=== PATIENT | male | born 1960 | race Caucasian/White ===

== ENCOUNTER → 2019-08-14 10:00 | Outpatient (BNVA) | payer MEDICARE, SELFPAY | PROVIDERS: Family Provider Family Medicine; PCP Family Medicine; Visit Provider Family Medicine | DX: E78.5 Hyperlipidemia, unspecified (principal); E11.9 Type 2 diabetes mellitus without complications; I10 Essential (primary) hypertension; M94.0 Chondrocostal junction syndrome [Tietze]; K21.9 Gastro-esophageal reflux disease without esophagitis; R07.81 Pleurodynia; D64.9 Anemia, unspecified | CPT/HCPCS: 80053; 80061; 83036; 85025 ==

== ENCOUNTER → 2019-09-26 12:30 | Outpatient (BNVA) | payer MEDICARE, SELFPAY | PROVIDERS: Family Provider Family Medicine; PCP Family Medicine; Visit Provider Nurse Practitioner | DX: F31.78 Bipolar disorder, in full remission, most recent episode mixed (principal) | CPT/HCPCS: 99213 ==

== ENCOUNTER → 2020-01-30 07:41 | Outpatient (BNVA) | payer MEDICARE, SELFPAY | PROVIDERS: Family Provider Family Medicine; PCP Family Medicine; Visit Provider Nurse Practitioner | DX: F31.78 Bipolar disorder, in full remission, most recent episode mixed (principal) | CPT/HCPCS: 99213 ==

== ENCOUNTER → 2020-03-11 08:00 | Outpatient (BNVA) | payer MEDICARE, SELFPAY | PROVIDERS: Family Provider Family Medicine; PCP Family Medicine; Visit Provider Family Medicine | DX: E11.9 Type 2 diabetes mellitus without complications (principal); E78.2 Mixed hyperlipidemia; Z79.4 Long term (current) use of insulin | CPT/HCPCS: 80053; 80061; 83036; 85025 ==

== ENCOUNTER → 2020-06-04 08:27 | Outpatient (BNVA) | payer MEDICARE, SELFPAY | PROVIDERS: Family Provider Family Medicine; PCP Family Medicine; Visit Provider Nurse Practitioner | DX: F31.78 Bipolar disorder, in full remission, most recent episode mixed (principal) | CPT/HCPCS: 99213 ==

== ENCOUNTER → 2020-09-16 12:18 | Outpatient (BNVA) | payer MEDICARE, SELFPAY | PROVIDERS: Family Provider Family Medicine; PCP Family Medicine; Visit Provider Family Medicine | DX: I10 Essential (primary) hypertension (principal); E11.9 Type 2 diabetes mellitus without complications; K21.9 Gastro-esophageal reflux disease without esophagitis; E78.2 Mixed hyperlipidemia; Z79.4 Long term (current) use of insulin | CPT/HCPCS: 80053; 80061; 83036; 84443; 85025 ==

== ENCOUNTER → 2020-10-15 08:15 | Outpatient (BNVA) | payer MEDICARE, SELFPAY | PROVIDERS: Family Provider Family Medicine; PCP Family Medicine; Visit Provider Nurse Practitioner | DX: F31.78 Bipolar disorder, in full remission, most recent episode mixed (principal) | CPT/HCPCS: 99214 ==

== ENCOUNTER → 2021-04-05 00:01 | Outpatient (BNVA) | payer MEDICARE, SELFPAY | PROVIDERS: Family Provider Family Medicine; PCP Family Medicine; Visit Provider Family Medicine | DX: I10 Essential (primary) hypertension (principal); E11.9 Type 2 diabetes mellitus without complications; E78.2 Mixed hyperlipidemia; K21.9 Gastro-esophageal reflux disease without esophagitis; Z79.4 Long term (current) use of insulin; M94.0 Chondrocostal junction syndrome [Tietze]; E78.5 Hyperlipidemia, unspecified | CPT/HCPCS: 80053; 80061; 83036; 84443; 85025 ==

== ENCOUNTER → 2021-09-13 12:19 | Outpatient (BNVA) | payer BC, SELFPAY | PROVIDERS: Family Provider Family Medicine; PCP Family Medicine; Visit Provider Family Medicine | DX: J32.9 Chronic sinusitis, unspecified (principal); E11.9 Type 2 diabetes mellitus without complications; E78.2 Mixed hyperlipidemia; I10 Essential (primary) hypertension; K21.9 Gastro-esophageal reflux disease without esophagitis; Z79.4 Long term (current) use of insulin; L40.8 Other psoriasis | CPT/HCPCS: 80053; 80061; 83036; 84443; 85025 ==

== ENCOUNTER → 2022-03-14 08:57 | Outpatient (BNVA) | payer BC, SELFPAY | PROVIDERS: Family Provider Family Medicine; PCP Family Medicine; Visit Provider Family Medicine | DX: I10 Essential (primary) hypertension (principal); E78.5 Hyperlipidemia, unspecified; E11.9 Type 2 diabetes mellitus without complications; Z12.5 Encounter for screening for malignant neoplasm of prostate; M94.0 Chondrocostal junction syndrome [Tietze]; K21.9 Gastro-esophageal reflux disease without esophagitis; Z79.4 Long term (current) use of insulin; E78.2 Mixed hyperlipidemia; F32.9 Major depressive disorder, single episode, unspecified | CPT/HCPCS: 80053; 80061; 83036; 84443; 85025; G0103 ==

== ENCOUNTER → 2022-08-12 10:18 | Outpatient (BNVA) | payer MEDICARE, SELFPAY | PROVIDERS: Family Provider Family Medicine; PCP Family Medicine; Visit Provider Family Medicine | DX: E11.9 Type 2 diabetes mellitus without complications (principal); Z79.4 Long term (current) use of insulin; I10 Essential (primary) hypertension; G47.30 Sleep apnea, unspecified | CPT/HCPCS: 80053; 80061; 82607; 83036 ==

== ENCOUNTER → 2023-01-12 11:05 | Outpatient (BNVA) | payer MEDICARE, SELFPAY | PROVIDERS: Family Provider Family Medicine; PCP Family Medicine; Visit Provider Family Medicine | DX: E11.9 Type 2 diabetes mellitus without complications (principal); E78.5 Hyperlipidemia, unspecified; I10 Essential (primary) hypertension; Z79.4 Long term (current) use of insulin; Z13.6 Encounter for screening for cardiovascular disorders; E78.2 Mixed hyperlipidemia | CPT/HCPCS: 80053; 80061; 82607; 83036 ==

== ENCOUNTER → 2023-07-10 10:58 | Outpatient (BNVA) | payer MEDICARE, SELFPAY | PROVIDERS: Family Provider Family Medicine; PCP Family Medicine; Visit Provider Family Medicine | DX: Z79.4 Long term (current) use of insulin (principal); E11.9 Type 2 diabetes mellitus without complications; I10 Essential (primary) hypertension; I50.9 Heart failure, unspecified; E78.5 Hyperlipidemia, unspecified; Z13.6 Encounter for screening for cardiovascular disorders; E78.2 Mixed hyperlipidemia | CPT/HCPCS: 80053; 80061; 82607; 83036; 83721 ==

== ENCOUNTER → 2023-12-29 08:59 | Outpatient (BNVA) | payer MEDICARE, SELFPAY | PROVIDERS: Family Provider Family Medicine; PCP Family Medicine; Visit Provider Family Medicine | DX: I10 Essential (primary) hypertension (principal); I50.9 Heart failure, unspecified; I25.9 Chronic ischemic heart disease, unspecified; E78.2 Mixed hyperlipidemia; E11.9 Type 2 diabetes mellitus without complications; Z79.4 Long term (current) use of insulin; Z13.6 Encounter for screening for cardiovascular disorders | CPT/HCPCS: 80053; 80061; 82607; 83036; 85025 ==

== ENCOUNTER 2024-10-07 15:31 | Inpatient (IN) | payer MEDICARE, SELFPAY ==
[2024-10-07] VITALS (10 sets, daily range): BP systolic 173–226; BP diastolic 96–151; PULSE 67–106; RESP 12–21; TEMP 36.4–36.9; O2SAT 93–98
--- NOTE | 2024-10-07 15:37 | CTR_ITS ---
PROCEDURE INFORMATION: Exam: CT Head Without Contrast Exam date and time: 10/07/2024 3:49 PM Age: 63 years old Clinical indication: Stroke-like symptoms; Speech disturbance; Right facial droop; Mohit lower extremity weakness; Additional info: Symptoms of acute stroke TECHNIQUE: Imaging protocol: Computed tomography of the head without contrast. Radiation optimization: All CT scans at this facility use at least one of these dose optimization techniques: automated exposure control; mA and/or kV adjustment per patient size (includes targeted exams where dose is matched to clinical indication); or iterative reconstruction. Other technique: STROKE PROTOCOL was implemented. COMPARISON: No relevant prior studies available. RADIATION DOSE METRICS: Total DLP (mGy-cm): 1094.6 FINDINGS: Brain: Age-indeterminate subcortical/deep white matter hypodensities within the superior left frontal lobe (series 3, image 31). No intracranial hemorrhage. There is global parenchymal volume loss. Periventricular white matter hypoattenuation is nonspecific but most likely due to small vessel disease. No mass effect or midline shift. Cerebral ventricles: Prominent ventricles likely secondary to volume loss. Paranasal sinuses: Visualized paranasal sinuses are clear. Mastoid air cells: The mastoid air cells are clear. Bones: Benign hyperostosis frontalis is present. Soft tissues: Soft tissues are unremarkable as visualized. CT/CT head thrombolytic [id number] IMPRESSION: Age-indeterminate subcortical/deep white matter hypodensities within the superior left frontal lobe, which may represent subacute to chronic deep white matter infarcts. Brain MRI may be considered if there is suspicion for acute ischemia. ASSESSMENT: ASPECTS ([place] Stroke Program Early CT Score) is 10.
--- NOTE | 2024-10-07 15:37 | ECG_ITS ---
[facility]: 2024-[facility]07 Pat Name: Mook Ruff Department: Room: Gender: Male [employer]: : 1960 Requested By: Blayne Yeung Order Number: [id number] Reading MD: LISA PETTIT Measurements Intervals [place] Rate: 99 P: 44 RI: 138 QRS: 55 QRSD: 88 T: 88 QT: 337 QTc: 434 Interpretive Statements SINUS RHYTHM LEFT ATRIAL ENLARGEMENT [-0.15mV P-WAVE IN V1/V2] NONSPECIFIC ST & T-WAVE ABNORMALITY No previous ECG available for comparison Electronically Signed On 10-07-2024 18:06:42 CDT by LISA PETTIT [email or web address]
--- NOTE | 2024-10-07 15:38 | W.ED.NEUROSD ---
HPI - Neuro Symptoms/Deficit General: Chief Complaint: Neuro Symptoms/Deficit Stated Complaint: stroke like symptoms Time Seen by Provider: 10/07/24 15:35 Source: patient Mode of arrival: ambulatory Limitations: no limitations History of Present Illness: 63-year-old male who states has been having slurred speech aphasia along with some right sided numbness he states it started 1 week ago. He denies any headache. He is quite aphasic here. No known history of stroke in the past Associated symptoms: Deny chest pain, headache(s), nausea or vomiting Related Data Home Medications ?Medication ?Instructions ?Recorded ?Confirmed aspirin 81 mg tablet,delayed 81 mg PO QDAY 08/14/19 10/07/24 release (Adult Low Dose Aspirin) amlodipine 10 mg tablet 10 mg PO DAILY 10/07/24 10/07/24 atorvastatin 80 mg tablet 80 mg PO DAILY 10/07/24 10/07/24 clonidine HCl 0.2 mg tablet 0.2 mg PO BID 10/07/24 10/07/24 glipizide 10 mg tablet, extended 10 mg PO BID 10/07/24 10/07/24 release 24 hr hydrochlorothiazide 12.5 mg capsule 12.5 mg PO QAM 10/07/24 10/07/24 irbesartan 300 mg tablet 300 mg PO DAILY 10/07/24 10/07/24 metformin 500 mg tablet 1,000 mg PO BID 10/07/24 10/07/24 metoprolol succinate 100 mg 100 mg PO BID 10/07/24 10/07/24 tablet,extended release 24 hr omeprazole 20 mg capsule,delayed 20 mg PO BID 10/07/24 10/07/24 release triamterene 75 1 tab PO DAILY 10/07/24 10/07/24 mg-hydrochlorothiazide 50 mg tablet Previous Rx's ?Medication ?Instructions ?Recorded insulin glargine 100 unit/mL (3 30 unit (0.3 mL) SUBCUT DAILY 30 01/11/23 mL) subcutaneous pen (Lantus days #45 mL Solostar U-100 Insulin) Allergies Allergy/AdvReac Type Severity Reaction Status Date / Time lisinopril Allergy cough Verified 10/07/24 15:46 Review of Systems Const: Denies: fever(s), chills, body aches or change in appetite Eyes: Denies: blurry vision or eye discomfort ENMT: Denies: throat pain or dental pain Card: Denies: chest pain Resp: Denies: dyspnea GI: Denies: abdominal pain, nausea, vomiting or diarrhea Musc: Denies: neck pain or back pain Skin/Breast: Denies: rash Neuro: Reports: numbness in extremities and Slurred speech present; Denies: headache(s) PFSH ED PFSH: Medical History (Updated 10/07/24 @ 16:34 by Aleyda Paula MD) Attention-deficit hyperactivity disorder, predominantly inattentive type Alcohol dependence, in remission Bipolar disorder, in full remission, most recent episode mixed ADHD Raynauds disease Neuropathy Psoriatic arthritis DDD (degenerative disc disease) Sleep apnea GERD (gastroesophageal reflux disease) Hypertension Hyperlipidemia Diabetes Bipolar 1 disorder Schizophrenia Depression Surgical History H/O total knee replacement Family History Other Hypertension Denies family history of Diabetes Chronic kidney disease (CKD) Lung disease Cancer Stroke Social History Smoking and tobacco/nicotine status: never used tobacco/nicotine Alcohol intake: never Substance/Drug Use: never Adopted: No Lives independently: Yes Housing: Manufactured/Mobile home Marital status: Single Number of children: 0 Highest education level completed: 11th Grade service: No Current occupational status: retired Current gender identity: Male NIH stroke score NIHSS: Level Of Consciousness - 1a: 0 Level Of Consciousness Questions - 1b: Both Correct Level Of Consciousness Commands - 1c: Both Correct Best Gaze - 2: Normal Visual Bust[place] - 3: No Visual Loss Facial Palsy - 4: Normal Motor Arm Right - 5: No Drift Motor Arm Left - 5: No Drift Motor Leg Right - 6: Drift Motor Leg Left - 6: No Drift Limb Ataxia - 7: Absent Sensory - 8: Mild To Moderate Loss Best Language - 9: Mild/Moderate Aphasia Dysarthia - 10: Mild/Moderate Dysarthia Extinction And Inattention - 11: 0 Score: Total Score: 4 Physical Exam Const: COMMON NORMALS: patient oriented x3 HENMT: COMMON NORMALS: normocephalic and atraumatic HEAD & SCALP: normocephalic and atraumatic Eye: COMMON NORMALS: Equal, round and reactive pupils present and EOMs intact bilaterally PUPIL: Yes Equal, round and reactive pupils present Neck/C-Spine: COMMON NORMALS: full ROM and supple Chest: COMMONS NORMALS: normal inspection of the chest Resp: COMMON NORMALS: normal respiratory effort, No retractions, No use of accessory muscles and clear to auscultation bilaterally AUSCULTATION: clear to auscultation bilaterally Cardio: COMMON NORMALS: regular rate, regular rhythm and No murmurs present (Cardio) RATE: regular rate RHYTHM: regular rhythm Extremity: COMMON NORMALS: normal to inspection and full ROM Neuro: COMMON NORMALS: patient oriented x3 SPEECH: abnormal speech Psych: COMMON NORMALS: mental status grossly normal, Normal thought process present and cooperative THOUGHT PROCESS: Normal thought process present Skin: COMMON NORMALS: no rashes or lesions noted and no wounds GENERAL SKIN EXAM: no rashes or lesions noted Course Vital Signs: Vital signs: Vital Signs Temperature 97.6 F 10/07/24 15:44 Pulse Rate 106 H 10/07/24 15:44 Blood Pressure 223/128 10/07/24 15:44 Pulse Oximetry 98 10/07/24 15:44 Oxygen Delivery Me thod Room Air 10/07/24 15:44 MDM - Neuro Symptoms/Deficit Medical Decision Making Patient presents here with strokelike symptoms he is out of any treatment window since last known normal was 1 week ago will admit at this time. Medical Records I reviewed the patient's medical records. Lab Data I reviewed the patient's lab results. 10/07/24 15:44 10/07/24 15:[address] 10/07/24 15:37 IMPRESSION: Age-indeterminate subcortical/deep white matter hypodensities within the superior left frontal lobe, which may represent subacute to chronic deep white matter infarcts. Brain MRI may be considered if there is suspicion for acute ischemia. ASSESSMENT: ASPECTS ([place] Stroke Program Early CT Score) is 10. ADDENDUM: 10/07/24 1610 COMMENT: THIS REPORT CONTAINS FINDINGS THAT MAY BE CRITICAL TO PATIENT CARE. The exam findings were verbally communicated by me to ALEYDA PAULA via telephone conference at 4:08 PM CDT on 10/07/2024. The findings were acknowledged and understood. Laboratory Results WBC 8.07 10^3/uL (3.29-11.43) 10/07/24 15:44 RBC 5.36 10^6/uL (3.85-5.65) 10/07/24 15:44 Hgb 17.30 g/dL (11.27-16.99) H 10/07/24 15:44 Hct 47.9 % (37-53) 10/07/24 15:44 MCV 89.4 fl (82-101) 10/07/24 15:44 MCH 32.3 pg (27-33) 10/07/24 15:44 MCHC 36.1 g/dL (30-55) 10/07/24 15:44 RDW 11.7 % (12.1-15.1) L 10/07/24 15:44 Plt Count 333 10^3/cmm (157-399) 10/07/24 15:44 MPV 10.0 fL (7.4-10.4) 10/07/24 15:44 Neut % (Auto) 71.9 % 10/07/24 15:44 Lymph % (Auto) 19.1 % 10/07/24 15:44 Sanders % (Auto) 7.1 % 10/07/24 15:44 Eos % (Auto) 0.9 % 10/07/24 15:44 Baso % (Auto) 0.5 % 10/07/24 15:44 Neut # (Auto) 5.81 10^3/uL (1.8-7.7) 10/07/24 15:44 Lymph # (Auto) 1.5 10^3/uL (0.8-4.8) 10/07/24 15:44 Sanders # (Auto) 0.6 10^3/uL (0.2-0.9) 10/07/24 15:44 Eos # (Auto) 0.1 10^3/uL (0.0-0.8) 10/07/24 15:44 Baso # (Auto) 0.0 10^3/uL (0.0-0.1) 10/07/24 15:44 Nucleated RBC % (auto) 0 % 10/07/24:44 Nucleated RBCs # 0.0 /100WBC 10/07/24 15:44 PT 11.50 SECONDS (12.1-14.9) L 10/07/24 15:44 INR 0.78 (0.8-1.2) L 10/07/24 15:44 APTT 24.2 SECONDS (23.9-36.7) 10/07/24 15:44 Sodium 132 mmol/L (136-145) L 10/07/24 15:44 Potassium 3.0 mmol/L (3.5-5.1) L 10/07/24 15:44 Chloride 88 mmol/L (98-107) L 10/07/24 15:44 Carbon Dioxide 27 mmol/L (22-29) 10/07/24 15:44 Anion Gap 20.0 (5-19) H 10/07/24 15:44 BUN 5 mg/dL (8-23) L 10/07/24 15:44 Creatinine 0.8 mg/dL (0.7-1.2) 10/07/24 15:44 GFR Calculation 97.6 mL/min (90-130) 10/07/24 15:44 Glucose 589 mg/dL (65-115) H* 10/07/24 15:44 POC Glucose 555 mg/dL (70-110) H* 10/07/24 15:37 Calculated Osmolality 299 mOsm/kg (285-295) H 10/07/24 15:44 Calcium 9.0 mg/dL (8.5-10.5) 10/07/24 15:44 Total Bilirubin 0.6 mg/dL (0.15-1.2) 10/07/24 15:44 AST 15 U/L (0-40) 10/07/24 15:44 ALT 13 U/L (0-41) 10/07/24 15:44 Alkaline Phosphatase 94 U/L (40-130) 10/07/24 15:44 Total Protein 7.1 g/dL (6.6-8.7) 10/07/24 15:44 Albumin 3.8 g/dL (3.5-5.2) 10/07/24 15:44 Globulin 3.3 g/dL (1.3-4.6) 10/07/24 15:44 Amorphous Sediment Not Reportable 10/07/24 16:08 All radiology interpretation(s) finalized by discharge Discharge Plan Discharge Patient Disposition: Admitted As Inpatient Clinical Impression: Cerebrovascular accident Condition: Stable Prescriptions: No Action aspirin [Adult Low Dose Aspirin] 81 mg tablet,delayed release (DR/EC) 81 mg PO QDAY Lantus Solostar U-100 Insulin 100 unit/mL (3 mL) insulin pen 30 unit SUBCUT DAILY 30 Days Qty: 45 3RF metformin 500 mg tablet 1,000 mg PO BID Rx Instructions: TAKE TWO TABLETS BY MOUTH TWICE DAILY atorvastatin 80 mg tablet 80 mg PO DAILY Rx Instructions: TAKE ONE TABLET BY MOUTH DAILY glipizide 10 mg tablet extended release 24hr 10 mg PO BID Rx Instructions: TAKE ONE TABLET BY MOUTH TWICE DAILY metoprolol succinate 100 mg tablet extended release 24 hr 100 mg PO BID Rx Instructions: TAKE ONE TABLET BY MOUTH TWICE DAILY clonidine HCl 0.2 mg tablet 0.2 mg PO BID Rx Instructions: TAKE ONE TABLET BY MOUTH TWICE DAILY amlodipine 10 mg tablet 10 mg PO DAILY Rx Instructions: TAKE ONE TABLET BY MOUTH EVERY DAY hydrochlorothiazide 12.5 mg capsule 12.5 mg PO QAM Rx Instructions: TAKE ONE CAPSULE BY MOUTH EVERY MORNING omeprazole 20 mg capsule,delayed release(DR/EC) 20 mg PO BID Rx Instructions: TAKE ONE CAPSULE BY MOUTH TWICE DAILY irbesartan 300 mg tablet 300 mg PO DAILY Rx Instructions: TAKE ONE TABLET BY MOUTH EVERY DAY triamterene-hydrochlorothiazid 75-50 mg tablet 1 tab PO DAILY Referrals: Azam Mendoza DO [Primary Care Provider] - Print Language: Spanish Coding Level of Care Code ED Line Prep Cook for Jay Jay Arteaga
[2024-10-07 15:40] LABS: Glucose Point of Care 555 mg/dL (70-110)
[2024-10-07 15:56] LABS: Basophils % 0.5 %; Eosinophils # 0.1 10^3/uL (0.0-0.8); Eosinophils % 0.9 %; Hematocrit 47.9 % (37-53); Lymphocytes # 1.5 10^3/uL (0.8-4.8); Lymphocytes % 19.1 %; Mean Corpuscular HGB Conc 36.1 g/dL (30-55); Mean Corpuscular Hemoglobin 32.3 pg (27-33); Mean Corpuscular Volume 89.4 fl (82-101); Monocytes # 0.6 10^3/uL (0.2-0.9); Monocytes % 7.1 %; Neutrophils # 5.81 10^3/uL (1.8-7.7); Neutrophils % 71.9 %; Nucleated Red Blood Cells % 0 %; Platelet Count 333 10^3/cmm (157-399); Red Blood Count 5.36 10^6/uL (3.85-5.65); Red Cell Distribution Width 11.7 % (12.1-15.1); White Blood Count 8.07 10^3/uL (3.29-11.43)
[2024-10-07] MEDS: insulin regular-human 100 units/1 mL 14 UNIT IVP (16:02)
--- NOTE | 2024-10-07 16:03 | XRR_ITS ---
PROCEDURE INFORMATION: Exam: XR Chest Exam date and time: 10/07/2024 4:15 PM Age: 63 years old Clinical indication: Other: Weakness, slurred speech, RT sided facial droop; Additional info: CVA TECHNIQUE: Imaging protocol: Radiologic exam of the chest. Views: 1 view. COMPARISON: No relevant prior studies available. FINDINGS: Lungs: Unremarkable. No consolidation. Pleural spaces: Unremarkable. No pleural effusion. No pneumothorax. Heart/Mediastinum: Unremarkable. No cardiomegaly. Bones/joints: Unremarkable. XR/XR chest 1V portable [id number] IMPRESSION: No acute findings.
[2024-10-07 16:06] LABS: INR 0.78 (0.8-1.2)
[2024-10-07 16:07] LABS: Partial Thromboplastin Time 24.2 SECONDS (23.9-36.7)
[2024-10-07] MEDS: aspirin 81 mg Chew Tablet 324 MG PO (16:13)
[2024-10-07 16:15] LABS: Alanine Aminotransferase 13 U/L (0-41); Albumin Level 3.8 g/dL (3.5-5.2); Alkaline Phosphatase 94 U/L (40-130); Aspartate Amino Transferase 15 U/L (0-40); Blood Urea Nitrogen 5 mg/dL (8-23); Carbon Dioxide 27 mmol/L (22-29); Chloride 88 mmol/L (98-107); Globulin 3.3 g/dL (1.3-4.6); Glomerular Filtration Rate 97.6 mL/min (90-130); Osmolality Calculated 299 mOsm/kg (285-295); Sodium 132 mmol/L (136-145); Total Bilirubin 0.6 mg/dL (0.15-1.2); Total Protein 7.1 g/dL (6.6-8.7)
[2024-10-07 16:17] LABS: Glucose 589 mg/dL (65-115)
[2024-10-07 16:32] LABS: Bilirubin Urine Negative (Negative); Blood Urine 1+ (Negative); Glucose Urine UA 3+ (Normal); Ketones Urine Negative (Negative); Leukocyte Esterase Urine Negative (Negative); Nitrate Urine Negative (Negative); Protein Urine 3+ (Negative); Urine Appearance Clear (CLEAR); Urine Color Yellow (Yellow); Urobilinogen Urine 0.2 mg/dL (Negative); pH Urine 5.5 (5-7)
[2024-10-07 16:37] LABS: Add Urine Microscopic? YES; Bacteria Urine None Seen /hpf; Hyaline Casts Urine 1.21 /lpf; Squamous Epithelial Cell Urine 0-5 /hpf (0-5)
[2024-10-07 16:42] LABS: Specific Gravity, Urine 1.033 (1.005-1.030)
[2024-10-07 16:42] LABS: Ketone (Acetest) Serum Negative (Negative)
[2024-10-07 16:43] LABS: Add Urine Culture? No
[2024-10-07 16:49] LABS: Glucose Point of Care 464 mg/dL (70-110)
[2024-10-07 16:51] LABS: Amphetamines Screen Urine Negative (Negative); Barbiturates Screen Urine Negative (Negative); Benzodiazepines Screen Urine Negative (Negative); Cocaine Screen Urine Negative (Negative); Opiate Screen Urine Negative (Negative); PCP Screen Urine Negative (Negative); THC Screen Urine Negative (Negative)
[2024-10-07 17:22] LABS: ABG PCO2 32.8 mmHg (35-45); ABG PH Result 7.44 (7.35-7.45); Alveolar-Arterial Oxygen Gradi 1.9 mmHg (5-10); Arterial Blood Gas Hematocrit 52.1 % (42-52); Base Excess ABG -1.1 mmol/L (-2.0-2.0); Blood Gas Operator Identificat GD; Blood Gas Sample Site Brachial, right; Blood Gas Sample Type Arterial; Carboxyhemoglobin 0.9 %THgb (0.4-20.1); HCO3 ABG 22.1 mmol/L (22-26); HGB O2 Sat 96.5 % (95-100); Ionized Calcium Level - ABG 1.2 mmol/L (1.1-1.4); Oxygen Device ROOM AIR; Oxygen Saturation ABG 98.4; PO2 ABG 93.2 mmHg (80.0-100.0); PO2 FiO2 Ratio Arterial Blood 443; Potassium Level - ABG 2.9 mmol/L (3.5-5.0)
--- NOTE | 2024-10-07 17:24 | CTR_ITS ---
PROCEDURE INFORMATION: Exam: CTA Head With Contrast, Arteriography Exam date and time: 10/07/2024 5:32 PM Age: 63 years old Clinical indication: Speech disturbance and weakness; Slurred speech; Additional info: Stroke, CT angiogram cervical and intracranial vessels TECHNIQUE: Imaging protocol: Computed tomographic angiography of the head with contrast. Exam focused on the arteries. 3D rendering (Not supervised by radiologist): MIP and/or 3D reconstructed images were created by the technologist. Radiation optimization: All CT scans at this facility use at least one of these dose optimization techniques: automated exposure control; mA and/or kV adjustment per patient size (includes targeted exams where dose is matched to clinical indication); or iterative reconstruction. Contrast material: OMNI 350; Contrast volume: 100 ml; Contrast route: INTRAVENOUS (IV); COMPARISON: CT head thrombolytic [id number] 10/07/2024 3:49 PM RADIATION DOSE METRICS: Total DLP (mGy-cm): 463.71 FINDINGS: ANTERIOR CIRCULATION: Right internal carotid artery: The intracranial right internal carotid artery demonstrates mild atherosclerotic calcification of the carotid siphon without significant stenosis. No aneurysm. Right middle cerebral artery: Right middle cerebral artery is patent. No significant stenosis. No aneurysm. Right anterior cerebral artery: Right anterior cerebral artery is patent. No significant stenosis. No aneurysm. Left internal carotid artery: The intracranial left internal carotid artery demonstrates mild atherosclerotic calcification of the carotid siphon without significant stenosis. No aneurysm. Left middle cerebral artery: Left middle cerebral artery is patent. No significant stenosis. No aneurysm. Left anterior cerebral artery: Left anterior cerebral artery is patent. No significant stenosis. No aneurysm. POSTERIOR CIRCULATION: Right vertebral artery: There is mild irregular atherosclerotic narrowing of the right vertebral artery, without significant stenosis. No aneurysm. Left vertebral artery: The left vertebral artery is dominant. Left vertebral artery is patent. No significant stenosis. No aneurysm. Basilar artery: The basilar artery is patent. No significant stenosis. No aneurysm. Right posterior cerebral artery: Right posterior cerebral artery is patent. No significant stenosis. No aneurysm. Left posterior cerebral artery: Left posterior cerebral artery is patent. No significant stenosis. No aneurysm. Brain: Please see seperately ordered CT of the head for full report. Cerebral ventricles: Please see seperately ordered CT of the head for full report. Bones/joints: Nonspecific 4 x 5 x 4 mm calcified, enhancing structure arising from the posterior clivus. There is adjacent remodeling and lucency/erosion of the posterior clivus (see for example series 7, image 68, series 6, images 100 3-105, and series 4, images 230-223). Soft tissues: Unremarkable. PROCEDURE INFORMATION: Exam: CTA Neck With Contrast Exam date and time: 10/07/2024 5:32 PM Age: 63 years old Clinical indication: Speech disturbance and weakness; Slurred speech; Additional info: Stroke, CT angiogram cervical and intracranial vessels TECHNIQUE: Imaging protocol: Computed tomographic angiography of the neck with contrast. Exam focused on the cervical segments of the vasculature. 3D rendering (Not supervised by radiologist): MIP and/or 3D reconstructed images were created by the technologist. Radiation optimization: All CT scans at this facility use at least one of these dose optimization techniques: automated exposure control; mA and/or kV adjustment per patient size (includes targeted exams where dose is matched to clinical indication); or iterative reconstruction. Contrast material: OMNI 350; Contrast volume: 100 ml; Contrast route: INTRAVENOUS (IV); COMPARISON: CT head thrombolytic [id number] 10/07/2024 3:49 PM RADIATION DOSE METRICS: Total DLP (mGy-cm): 463.71 FINDINGS: Right common carotid artery: The right common carotid artery demonstrates mild atherosclerotic narrowing, predominantly at the level of the carotid bulb. No significant stenosis. No dissection. Right internal carotid artery: The right internal carotid artery shows no evidence of significant stenosis. Right external carotid artery: The right external carotid artery shows no evidence of significant stenosis. Left common carotid artery: The left common carotid artery demonstrates mild atherosclerotic narrowing, predominantly at the level of the carotid bulb. No significant stenosis. No dissection. Left internal carotid artery: The left internal carotid artery shows no evidence of significant stenosis. Left external carotid artery: The left external carotid artery shows no evidence of significant stenosis. Right vertebral artery: Right vertebral artery is patent. No significant stenosis. No evidence of dissection. Left vertebral artery: The left vertebral artery is dominant. Left vertebral artery is patent. No significant stenosis. No evidence of dissection. Aorta: Conventional three-vessel aortic arch. Thyroid: The visualized thyroid gland is unremarkable. Soft tissues: Soft tissues are unremarkable as visualized. Bones/joints: There is a nonspecific reversal of the normal cervical lordosis. The cervical spine demonstrates marked degenerative changes at multiple levels. Lungs: The visualized portions of the lungs are unremarkable. CT/CT angio headneck* [id number] IMPRESSION: 1. No large vessel occlusion or flow-limiting arterial stenosis of the intracranial vasculature. 2. Nonspecific 5 mm calcified, enhancing structure arising from the posterior clivus with adjacent remodeling and lucency/erosion of the posterior clivus. This may possibly represent a small retro clival meningioma, although is not well assessed. Consider nonemergent contrast-enhanced MRI IAC protocol further characterization IMPRESSION: No stenosis or occlusion. REFERENCES: NASCET CRITERIA. The degree of stenosis in the cervical segment of the internal carotid artery is based on NASCET criteria. Normal is no stenosis. Mild is less than 50% stenosis. Moderate is 50-69% stenosis. Severe is 70% to 99% stenosis. Total occlusion is no detectable patent lumen.
--- NOTE | 2024-10-07 17:27 | PM.HP ---
Providers/Chief Complaint Admitting Physician: Jules Miller MD Primary Care Provider: Azam Mendoza DO Chief Complaint: stroke like symptoms History of Present Illness Mook Ruff is a 63 year old male with past medical history of hypertension, hyperlipidemia, diabetes mellitus presents to the ER today because of worsening generalized weakness, slurred speech and dysphagia Which started a week ago. Weakness started all of a sudden. Denies any progression. Complains of occasional fall. Complaints of occasionally dropping things from his hands because of weakness over last 1 week, feeling sluggish. He himself denies any cough, runny nose, headache, dizziness, fever. Denies any diurnal variation. States has not been able to take his medication over last 1 week. Patient does seem to be unreliable historian. Lives by himself. Review of Systems General: Reports: 10 or more systems reviewed and unremarkable except in HPI and below Const: Denies: fever(s), chills, body aches, change in appetite, change in weight, malaise, night sweats, diaphoresis, change in sleep pattern, daytime sleepiness or snoring Eyes: Denies: change in vision, blurry vision, photophobia, eye discomfort or eye discharge ENMT: Denies: throat pain, enlarged tonsils, hoarseness, mouth pain, oral sores, dry mouth, tinnitus, nasal congestion or post nasal drip Card: Denies: chest pain, palpitations, irregular heart rhythm, edema, swelling of feet/ankles, lightheadedness, syncope, pre-syncope, dyspnea on exertion, orthopnea, leg pain with exertion or acrocyanosis Resp: Denies: dyspnea, productive cough, non-productive cough, wheezing, stridor, pain on inspiration, change in phlegm color, hemoptysis or chest congestion GI: Denies: abdominal pain, nausea, vomiting, hematemesis, coffee ground emesis, dysphagia, heartburn, diarrhea, constipation, bloating, GI cramping, change in bowel habits, pain on defecation, hematochezia or melena : Denies: flank pain, difficulty urinating, dysuria, urinary frequency, urinary urgency, urinary hesitancy, urinary dribbling, difficulty starting urination, change in urine stream, nocturia or hematuria Musc: Denies: neck pain, back pain, extremity pain, joint pain, joint swelling, joint redness, joint stiffness or limited range of motion Neuro: Denies: headache(s), numbness in extremities, weakness in extremities, sensory changes, lack of coordination, difficulty walking, frequent falls, dizziness, vertigo, confusion, Slurred speech present, difficulty communicating thoughts or seizure-like activity Psych: Denies: anxiety, depression, mood swings, panic attacks, hopelessness or irritability Endo: Denies: polyuria, polydipsia, tired all the time, cold intolerance, excessive sweating, flushing or heat intolerance Hector/Lymph: Denies: easy bruising or easy bleeding All/Imm: Denies: tongue swelling, facial swelling or acute wheezing Medications/Allergies Home Medications ?Medication ?Instructions ?Recorded ?Confirmed ?Last Taken ?Type aspirin 81 mg tablet,delayed 81 mg PO QDAY 08/14/19 10/07/24 10/07/24 History release (Adult Low Dose Aspirin) insulin glargine 100 unit/mL (3 30 unit (0.3 mL) SUBCUT DAILY 30 01/11/23 10/07/24 Unknown Rx mL) subcutaneous pen (Lantus days #45 mL Solostar U-100 Insulin) amlodipine 10 mg tablet 10 mg PO DAILY 10/07/24 10/07/24 10/07/24 History atorvastatin 80 mg tablet 80 mg PO DAILY 10/07/24 10/07/24 10/07/24 History clonidine HCl 0.2 mg tablet 0.2 mg PO BID 10/07/24 10/07/24 10/07/24 History glipizide 10 mg tablet, extended 10 mg PO BID 10/07/24 10/07/24 10/07/24 History release 24 hr hydrochlorothiazide 12.5 mg capsule 12.5 mg PO QAM 10/07/24 10/07/24 10/07/24 History irbesartan 300 mg tablet 300 mg PO DAILY 10/07/24 10/07/24 10/07/24 History metformin 500 mg tablet 1,000 mg PO BID 10/07/24 10/07/24 10/07/24 History metoprolol succinate 100 mg 100 mg PO BID 10/07/24 10/07/24 10/07/24 History tablet,extended release 24 hr omeprazole 20 mg capsule,delayed 20 mg PO BID 10/07/24 10/07/24 10/07/24 History release triamterene 75 1 tab PO DAILY 10/07/24 10/07/24 10/07/24 History mg-hydrochlorothiazide 50 mg tablet Allergies Allergy/AdvReac Type Severity Reaction Status Date / Time lisinopril Allergy cough Verified 10/07/24 15:46 PFSH Acute PFSH: Medical History (Updated 10/07/24 @ 18:29 by Jules Miller MD) Attention-deficit hyperactivity disorder, predominantly inattentive type Alcohol dependence, in remission Bipolar disorder, in full remission, most recent episode mixed ADHD Raynauds disease Neuropathy Psoriatic arthritis DDD (degenerative disc disease) Sleep apnea GERD (gastroesophageal reflux disease) Hypertension Hyperlipidemia Diabetes Bipolar 1 disorder Schizophrenia Depression Surgical History H/O total knee replacement Family History Other Hypertension Denies family history of Diabetes Chronic kidney disease (CKD) Lung disease Cancer Stroke Social History Smoking and tobacco/nicotine status: never used tobacco/nicotine Alcohol intake: never Substance/Drug Use: never Adopted: No Lives independently: Yes Housing: Manufactured/Mobile home Marital status: Single Number of children: 0 Highest education level completed: 11th Grade service: No Current occupational status: retired Current gender identity: Male Vitals/I&O/Wt Last Vital Signs Temp 97.6 F 10/07/24 15:44 Pulse 105 H 10/07/24 17:00 Resp 12 10/07/24 17:00 BP 190/115 10/07/24 17:00 Pulse Ox 95 10/07/24 17:00 O2 Del Method Room Air 10/07/24 15:44 Physical Exam Narrative: General: No acute distress, AO x3, slurred speech HEENT: PERRLA, pupils bilaterally equal and reactive Chest: Normal vesicular breath sounds, no added sounds, equal good air entry bilaterally CVS: S1-S2 regular, no murmurs, no tachycardia, no gallops, no rubs Abdomen: Soft, nontender, no organomegaly, bowel sounds present Neuro: HARJINDER COMA SCALE: document GCS findings [place] coma scale eye opening: Spontaneous [place] coma scale verbal response: Orientated [place] coma scale motor response: Obey commands [place] coma scale total score: 15 COMMON NORMALS: patient oriented x3 and moves all extremities MOTOR EXAM: no asterixis, Motor fasciculations not present and Abnormal motor strength present (All 4 limbs 3/5) PLANTAR REFLEX: downgoing: bilateral COORDINATION: [id number] test abnormal and [id number] test abnormal Skin: NARRATIVE SKIN EXAM: Generalized plaque, scaly, erythematous LESIONS: lesion noted Data 10/07/24 15:44 10/07/24 15:44 A&P Assessment and plan (1) Generalized muscle weakness: CT imaging not really consistent cannot really answer my generalized weakness and slurred speech. Patient not have any new progressive symptoms. Cannot rule out dermatomyositis versus polymyositis autoimmune disorders Check ESR, CRP, JUSTYNA panel, CPK, aldolase, LDH, TSH. Hold off on statins. (2) Cerebrovascular accident: Appreciate CT head. Check CTA head and neck. Check echocardiogram. Aspirin 81 mg daily. Holding off on statin as above. Check A1c, lipid panel. Permissible hypertension. Treat if systolic blood pressure more than 220 mmHg. PT/OT/speech evaluation. (3) Uncontrolled blood glucose: Anion gap around 20. Uncontrolled hyperglycemia. Check A1c. Check ketones, ABG. If ketones positive will start on DKA protocol. Normal saline at 75 cc/h. (4) Type 2 diabetes mellitus: Continue with home dose of Lantus 30 units daily. Insulin sliding scale moderate dose protocol ACHS. (5) Hypertension: Permissible hypertension for now. Hold off on home dose of clonidine, ARB. Continue with home dose of metoprolol to prevent reflex tachycardia. Treat for systolic blood pressure of more than 220 mmHg with IV hydralazine 10 mg every 4 hours as needed. Will change prescription goal blood pressure of less than 140/90 mmHg in 24 hours. Qualifiers: Hypertension type: essential hypertension Qualified Code(s): I10 - Essential (primary) hypertension (6) Slurred speech: Plan Full code Dysphagia level 5 diet. Advance as per speech evaluation. Carb consistent diet Protonix for PUD prophylaxis Heparin 5000 Q12 hourly for DVT prophylaxis Discharge plan: Discussed in detail with the patient. He lives by himself. Patient has not been able to take care of himself recently. Has been having frequent falls. Has been feeling sluggish and dropping things. Patient would benefit from SNF placement for rehabilitation and is agreeable. PDMP PDMP Reviewed: Not Reviewed Attestations Medical Necessity Statement*: Admission for more than 2 midnights for management of generalized weakness, elevated lactic acid uncontrolled hyperglycemia while safe discharge planning is sought Diagnoses Generalized muscle weakness M62.81 Cerebrovascular accident I63.9 Uncontrolled blood glucose R73.09 Type 2 diabetes mellitus E11.9 Essential hypertension I10 Hypertension type: essential hypertension Slurred speech R47.81
[2024-10-07] MEDS: iohexol 350 mg/mL 500 mL Btl (per mL) IV (17:43)
[2024-10-07 17:51] LABS: Lactic Sepsis W/Reflex 5.1 mmol/L (0.5-2.2)
[2024-10-07 17:59] LABS: Procalcitonin 0.07 ng/mL (0-0.5)
--- NOTE | 2024-10-07 18:40 | USCV_ITS ---
Mook Ruff Age: 63 Gender: M : 1960 Exam Date: 10/07/2024 20:48 Ordering Phys: Jules Miller MD Technologist: PHILL Exam Location: [facility] – [place] Indication: Stroke, HTN, HL, DM, slurred speech, dysphasia. BP: 173 / 96 HR: 75 Rhythm: Sinus Technical Quality: Adequate MEASUREMENTS (Male / Female) Normal Values 2D ECHO LV Diastolic Diameter PLAX 5.4 cm 4.2 - 5.9 / 3.9 - 5.3 cm IVS Diastolic Thickness 1.5 cm 0.6 - 1.0 / 0.6 - 0.9 cm IVS Systolic Thickness 1.9 cm LVPW Diastolic Thickness 1.3 cm 0.6 - 1.0 / 0.6 - 0.9 cm LVPW Systolic Thickness 1.9 cm LVOT Diameter 2.1 cm LV Ejection Fraction 2D Teich 60.9 % LV Ejection Fraction MOD 4C 64.2 % LV Ejection Fraction MOD 2C 54.2 % LV Ejection Fraction 2C AL 56.4 % LA Diameter 3.5 cm Aorta at Sinotubular Diameter 3.5 cm IVC Diameter 2.3 cm M-MODE LA Ao Ratio MM 1.2 AV Cusp Separation MM 2.2 cm DOPPLER AV Peak Velocity 121.0 cm/s LVOT Peak Velocity 94.0 cm/s AV Area Cont Eq vti 3.1 cm squared AV Area Cont Eq pk 2.7 cm squared MV Peak Velocity 73.0 cm/s MV Area PHT 2.4 cm squared Mitral E to A Ratio 0.6 TR Peak Velocity 205.0 cm/s TR Peak Gradient 16.8 mmHg TV Peak E Velocity 54.0 cm/s PV Peak Velocity 89.0 cm/s FINDINGS Left Ventricle Normal LV size with a borderline low ejection fraction of 50 to 55%.. Mild hypokinesia of the basal inferior wall segment. Right Ventricle The right ventricle is normal in size and function. Right Atrium The right atrium is normal in size. Left Atrium Mildly increased left atrial size. Mitral Valve Thickened mitral valve. Mild mitral annular calcification. Aortic Valve No gross abnormalities noted Tricuspid Valve No gross abnormalities noted Pulmonic Valve Pulmonic valve not well visualized. Pericardium Normal pericardium without effusion. Aorta Normal ascending aorta dimension. IVC Inferior vena cava not visualized. CONCLUSIONS Normal LV size with a borderline low ejection fraction of 50 to 55%.. Mild hypokinesia of the basal inferior wall segment. Mildly increased left atrial size. Thickened mitral valve. Mild mitral annular calcification. There is no pericardial effusion. There are no intracardiac masses. No similar previous studies are available for comparison Dr Hong Soto MD [facility] (Electronically Signed) Final Date: 10 October 2024 21:24 S
[2024-10-07] MEDS: sodium chloride 0.9% 1,000 ML 75 ML IV (18:42)
[2024-10-07 19:13] LABS: Reflex Lactate Order REFLEX LACTIC ORDERD
[2024-10-07 19:33] LABS: Glucose Point of Care 340 mg/dL (70-110)
[2024-10-07 19:33] LABS: C Reactive Protein 4.3 mg/L (0.0-4.9); Creatine Phosphokinase 93 U/L (39-308); Iron 84 ug/dL (59-158); Lactate Dehydrogenase 228 U/L (135-225); Percent Saturation 27.4 % (20-50); Thyroid Stimulating Hormone 1.29 uIU/mL (0.27-4.20); Total Iron Binding Capacity 306 mcg/dl; Unsaturated Iron Binding 222 ug/dL (112-347); Vitamin B12 743 pg/mL (232-1245)
[2024-10-07 20:19] LABS: Erythrocyte Sedimentation Rate 28 mm/hr (0-10)
[2024-10-07 21:00] LABS: Estmated Average Glucose 266; Hemoglobin A1C 10.9 % (4.0-6.0)
[2024-10-07 21:53] LABS: Glucose Point of Care 332 mg/dL (70-110)
[2024-10-07] MEDS: docusate sodium 100 mg Capsule PO (22:22)
[2024-10-07] MEDS: metoprolol succinate ER (24 HR) 100 mg Tablet PO (22:23)
[2024-10-07] MEDS: heparin 5,000 unit/mL INJ 1 mL 5000 UNIT SUBCUT (22:23)
[2024-10-07] MEDS: insulin lispro 100 unit/1 mL SUBCUT (22:23)
[2024-10-08] VITALS (9 sets, daily range): BP systolic 166–217; BP diastolic 86–117; PULSE 56–79; RESP 17–20; TEMP 36.4–36.8; O2SAT 95–99
--- OUTSIDE RECORDS SUMMARY | 2024-10-08 06:33 | XMS_ITS ---
Author Organization [facility] Address [address] [place] [address] Care Team Providers Care Business Banking Relationship Manager Name Role Phone Azam Mendoza Primary Care Provider Chayo Gonzalez Unavailable [phone] Car Winkler Unavailable [phone] REASON FOR VISIT 09/22/[address] winkler [facility] +/- stent dx: cp,sob, chf fin#[id number] Encounters Encounter Location Date Provider Diagnosis [facility] [address] [place] [address], [place] [address] 09/22/2023 Car Winkler Plan Of Treatment No Information Progress Notes * MISSY CARDENAS NDOB:1960 (63 yo M)Acc No.[id number]:09/22/2023 Patient:?MISSY CARDENAS Lisa Provider:?Car Winkler MD :1960???Age:62 Y???Sex:Male Curtis e:09/22/2023 Address:[address] [place] [address] [address] [id number] Pcp:Azam Mendoza Check Out:04:24 PM TRANSACTION ADVISORY SERVICES MANAGER Subjective: * Chief Complaints: * ???1. 09/22/[address] winkler [facility] +/- stent dx: cp,sob, chf fin#[id number]. * Medical History:? Objective: * Vitals:? Assessment: Plan: * Treatment: * Billing Information: * Visit Code:? * Procedure Codes:? * Electronic signature of Patmatthew ick Tobbia , MD on 10/08/2024 at 06:33 AM CDT Sign off status: Pending * Provider:?Car Winkler MD Date:?09/21 Generated for Anjana ferrer/Wade/Reece on:?10/08/2024 06:33 AM CDT
--- OUTSIDE RECORDS SUMMARY | 2024-10-08 06:33 | XMS_ITS | Patient Health Record ---
Author Organization [facility] Address [address] [place] [address] Care Team Providers Care Cnc Lathe Machinist Name Role Phone Azam Mendoza Primary Care Provider Chayo Gonzalez Unavailable [phone] [employer] Unavailable [phone] Allergies Allergen (clinical drug ingredient) Drug/Non Drug Allergy documented on EMR Reaction Allergy Type Onset Date Status lisinopril Lisinopril Unknown Drug Allergy Activ e Petroleum Jelly Unknown Drug Allergy A ctive Reason For Referral No Information Medications Medication SIG (Take, Route, Frequency, Duration) Notes Start Date End Date Status Irbesartan 300 MG 1 tablet Orally Once a day Active glipiZIDE ER 5 MG 1 tablet with food Orally Once a day Active metFORMIN HCl 500 MG 1 tablet with a cyndi l Orally Once a day Active Omeprazole-Sodium Bicarbonate 20-1100 MG 1 capsule on an empty stomach Orally Once a day Active CoQ10 Active Vitamin B Complex Ac tive Cyclobenzaprine HCl 10 MG 1 tablet at be dtime as needed Orally Once a day Active Iron 325 (65 Fe) MG 1 tablet Orally Thre e times a Week Active Lantus SoloStar 100 UNIT/ML as directed Subcutaneous 24-26 UNITS Active Diclo Gel Active Metoprolol Succinate 100 MG 1 capsule Orally Once a day Active Multivitamin Active Atorvastatin Calcium 10 MG 1 tablet Orally Once a day Active Triamterene-HCTZ 75-50 MG TAKE ONE TABLE T BY MOUTH EVERY MORNING for 90 Active cloNIDine HCl 0.2 MG 1 tablet Orally Onc e a day Active Aspir-81 Active Social History Tobacco Use: Social History Observation Description Date Details (start date - stop date) Former Smoker NA - NA xTobacco Use/Smoking Question Answer Notes Are you a former smoker Section Notes: caffeine positive- coffee alcohol pos caffeine pos alcohol pos caffeine pos alcohol pos Problems Problem Type SNOMED Code ICD Code Onset Dates Problem Status W/U Status Risk Notes Problem Ischemic cardiomyopathy (971803671) Ischemic cardiomyopathy (I25.5) Active confirmed Problem Chronic systolic heart failure (255332674) Chronic systolic (congestive) heart failure (I50.22) Active confirmed Problem 12401531 Hypertension, unspecified type (I10) Active confirmed Problem 041586984 Atherosclerosis of kashia coronary artery of kashia heart without angina pectoris (I25.10) Active confirmed Problem Obesity (903687631) Obesity (E66.9) Active confirmed Problem Atherosclerotic heart disease of kashia coronary artery without angina pectoris (841385689588506) Arteriosclerosis of coronary artery (I25.10) Active confirmed Problem Sleep apnea (36344069) Sleep apnea (G47.30) Active confirmed Problem Cardiomyopathy (48022888) Cardiomyopathy (I42.9) Active confirmed Problem Hypertension (55420496) Hypertension (I10) Active confirmed Problem Hyperlipidemia (60981981) Hyperlipidemia (E78.5) Active confirmed Problem 23904454 Type 2 diabetes with complication (E11.8) Active confirmed Problem Dilatation of aorta (29114293) 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) Active confirmed Vital Signs Heart Rate 72 /min 10/23/2023 Blood pressure diastolic 82 mm Hg 10/23/2023 Oximetry 96 % 10/23/2023 Height-cm 180.34 cm 10/23/2023 Weight-kg 105.6 kg 10/23/2023 Height 71 in 10/23/2023 Blood pressure systolic 138 mm Hg 10/23/2023 Weight 232.8 lbs 10/23/2023 BMI 32.47 kg/m2 10/23/2023 Encounters Encounter Location Date Provider Diagnosis [facility] [address] [place] [id number] 10/23/2023 Chayo Lin Encounter for follow-up examination after completed treatment for conditions other than malignant neoplasm Z09 ; Coronary angioplasty status Z98.61 ; Ischemic cardiomyopathy I25.5 ; Aortic ectasia I77.819 ; Type 2 diabetes with complication E11.8 ; Hypertension, unspecified type I10 and Atherosclerosis of kashia coronary artery of kashia heart without angina pectoris I25.10 Assessments Encounter Date Diagnosis (ICD Code) Assessment Notes Treatment Notes Treatment Clinical Notes Section Notes 10/23/2023 Encounter for follow-up examination after completed treatment for conditions other than malignant neoplasm (ICD-10 - Z09) 10/23/2023 Coronary angioplasty status (ICD-10 - Z98.61) 10/23/2023 Ischemic cardiomyopathy (ICD-10 - I25.5) He has a history of a reduced EF ejection fraction down to around 20%, now improved status post ischemic workup which was negative for blockages. Continue with annual echo for surveillance. 10/23/2023 Aortic ectasia (ICD-10 - I77.819) There is no evidence of aortic ectasia on most recent echocardiogram. We will continue with annual echo for surveillance of cardiomyopathy. 10/23/2023 Type 2 diabetes with complication (ICD-10 - E11.8) 10/23/2023 Hypertension, unspecified type (ICD-10 - I10) 10/23/2023 Atherosclerosis of kashia coronary artery of kashia heart without angina pectoris (ICD-10 - I25.10) 10/23/2023 Other Overall this gentleman is doing well without any complaints or symptoms. We will see him in the clinic annually for an echo and every 6 months for routine follow-up, sooner if needed. Plan Of Treatment Pending Test Test Name Order Date Prothrombin Time 63634 08/24/2023 Basic Metabolic Panel (BMP) 95892 2023 Lipid Panel Reflex DLDL 78143, 19669 07/2023 Partial Thromboplastin Time 68534 2023 CBC Reflex Man Diff 16609, 63020 024 Electrocardiogram 12 Lead Tracing-14893 08/24/2023 Electrocardiogram (EKG) - 63578 08/24/19 24 Insurance Providers Payer Name Payer Address Payer Phone Subscriber Number Group Number Insured Name Patient Relationship to Insured Coverage Start Date Coverage End Date [place] Replacement [address] [place] [address] [phone] [id number] MISSY CARDENAS Self - patient is the insured 4 Medical (General) History Medical History History ICD Code htn high cholesterol diabetic covid vax Surgical History Surgery Date(Month/Year) nose surgery 1970 Left knee surgery 1972 Right knee surgery 1975 1. Nonobstructive CAD. 09.22.2023 Hospitalization History Reason Date(Month/Year) [facility] 05/2023
--- OUTSIDE RECORDS SUMMARY | 2024-10-08 06:33 | XMS_ITS ---
Author Organization [facility] Address [address] [facility] [place] [address] Care Team Providers Care Analysis Lead Name Role Phone Azam Mendoza Primary Care Provider Chayo Gonzalez Unavailable [phone] Car Berger Unavailable [phone] REASON FOR VISIT 4-6 MO OV PER TOBBIA 10/23/23 TW PT called CX appt did not wish to RS DJS 01/22/2024 Encounters Encounter Location Date Provider Diagnosis [facility] [address] [place] [address], [place] [address] 02/22/2024 Car Berger Plan Of Treatment No Information Progress Notes * MISSY CARDENAS NDOB:1960 (63 yo M)Acc No.[id number]:02/22/2024 Progress Notes Patient:?MISSY CARDENAS Provider:?Car Berger MD :1960???Age:63 Y???Sex:Male Curtis e:02/22/2024 Address:[address] [place] [address] [id number] Pcp:Azam Mendoza Subjective: * Chief Complaints: * ???1. 4-6 MO OV PER TOBBIA TW PT called CX appt did not wish to RS DJS 01/22/2024. * Medical History:? Objective: * Vitals:? Assessment: Plan: * Treatment: Forms: * Billing Information: * Visit Code:? * Procedure Codes:? Care Plan Details* * Electronic signature of Keisha Berger MD on 10/08/2024 at 06:33 AM CDT Sign off status: Pending * Provider:?Car Berger MD Date:?02/21 Generated for Anjana ferrer/Wade/Reece on:?10/08/2024 06:33 AM CDT
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
[2024-10-08 07:05] LABS: Glucose Point of Care 321 mg/dL (70-110)
[2024-10-08 07:13] LABS: Basophils # 0.1 10^3/uL (0.0-0.1); Basophils % 0.8 %; Eosinophils # 0.2 10^3/uL (0.0-0.8); Eosinophils % 2.6 %; Hematocrit 44.3 % (37-53); Lymphocytes # 1.7 10^3/uL (0.8-4.8); Lymphocytes % 21.3 %; Mean Corpuscular HGB Conc 35.4 g/dL (30-55); Mean Corpuscular Hemoglobin 31.6 pg (27-33); Mean Corpuscular Volume 89.1 fl (82-101); Mean Platelet Volume 9.7 fL (7.4-10.4); Monocytes # 0.7 10^3/uL (0.2-0.9); Monocytes % 8.8 %; Neutrophils # 5.17 10^3/uL (1.8-7.7); Neutrophils % 66.1 %; Nucleated Red Blood Cells % 0 %; Platelet Count 268 10^3/cmm (157-399); Red Blood Count 4.97 10^6/uL (3.85-5.65); Red Cell Distribution Width 11.8 % (12.1-15.1); White Blood Count 7.81 10^3/uL (3.29-11.43)
[2024-10-08 07:33] LABS: Chol HDL Ratio 6.25 mg/dL (1.0-5.00); Cholesterol 325 mg/dL (0-200); HDL Cholesterol 52 mg/dL (60-100); LDL Cholesterol Calculated 204 mg/dL (50-129); LDL HDL Ratio 3.92 RATIO (0.00-3.22); Triglycerides 344 mg/dL (0-150)
[2024-10-08 07:37] LABS: Procalcitonin 0.07 ng/mL (0-0.5)
[2024-10-08 07:39] LABS: Alanine Aminotransferase 11 U/L (0-41); Albumin Level 3.2 g/dL (3.5-5.2); Alkaline Phosphatase 76 U/L (40-130); Aspartate Amino Transferase 13 U/L (0-40); Blood Urea Nitrogen 7 mg/dL (8-23); Calcium 8.7 mg/dL (8.5-10.5); Carbon Dioxide 26 mmol/L (22-29); Chloride 99 mmol/L (98-107); Creatinine Clr Calc Pharmacy 147.1484; Globulin 2.6 g/dL (1.3-4.6); Glomerular Filtration Rate 136.1 mL/min (90-130); Glucose 275 mg/dL (65-115); Magnesium 1.4 mg/dL (1.7-2.3); Osmolality Calculated 294 mOsm/kg (285-295); Phosphorus 3.7 mg/dL (2.5-4.5); Sodium 138 mmol/L (136-145); Total Bilirubin 0.6 mg/dL (0.15-1.2); Total Protein 5.8 g/dL (6.6-8.7)
[2024-10-08] MEDS: pantoprazole 40 mg SDV IVP (07:43)
[2024-10-08] MEDS: metoprolol succinate ER (24 HR) 100 mg Tablet PO ×2 (07:44→16:40)
[2024-10-08] MEDS: aspirin 81 mg EC Tablet PO (07:44)
[2024-10-08] MEDS: docusate sodium 100 mg Capsule PO (07:44)
[2024-10-08] MEDS: heparin 5,000 unit/mL INJ 1 mL 5000 UNIT SUBCUT ×2 (07:44→21:29)
[2024-10-08] MEDS: insulin lispro 100 unit/1 mL SUBCUT ×4 (07:44→21:29)
[2024-10-08 07:57] LABS: Folate Level 11.8 ng/mL (4.5-32.2)
[2024-10-08] MEDS: insulin glargine 100 units/1 mL 30 UNIT SUBCUT ×2 (08:44→16:41)
[2024-10-08] MEDS: amlodipine 10 mg Tablet PO (09:51)
[2024-10-08] MEDS: potassium chloride ER 20 mEq Tablet 40 MEQ PO ×2 (09:51→11:31)
[2024-10-08] MEDS: magnesium sulfate premix 1 GM/100 ML PIGGYBACK IV (09:51)
--- NOTE | 2024-10-08 10:18 | PC.CHAP ---
Pastoral Care Encounter/Spiritual Assessment Type of Contact [] Declined equipment maintenance technician visit [] Patient/Family/Request visit [] Outpatient visit [] Follow-up visit [] Physician referral [] Code/Alert [] Routine visit [] Staff referral [] Actively dying [] Patient sleeping [] Family support [] [] Out of room [] Palliative care [] [x] Receiving care in room [] Pre-surgical visit [] Trauma [] Long length of stay [] ICU visit [] Other: Relational/Emotional Strength [] Patient feels connected with others/family/visitors/staff [] Distress [] Loneliness/isolation [] Abandonment Spirituality of Patient [] Person of Jessica [] Attends Nondenominational of their Jessica [] Believes in Prayer [] Reads Bible or Cheondoism materials [] There are Spiritual issues to be addressed Art Instructor Interventions [] Prayer [] Active listening [] Non-anxious presence [] Spiritual/emotional support [] Crisis/trauma care [] Spiritual counseling [] Bereavement support [] Provided bereavement packet [] Provided Bible/devotional materials [] Provided toy/stuffed animal, coloring book to patient or family member [] Provided Communion [] Anointing/[place] [] Salvation [] Completed spiritual assessment [] Other: Impact on Illness or Injury [] Angry [] Fearful [] Anxious [] Often cries [] Exhaustion [] Unable to work [] Unable to attend mu-ism [] Unable to walk/stand [] Unable to read [] Unable to drive [] Unable to eat/drink [] Unable to sleep [] Unable to be with family [] Patient intubated [] Other: Summary Time spent with patient
--- NOTE | 2024-10-08 11:08 | PM.PN ---
Subjective Subjective: No acute events overnight. Patient's blood pressures have been elevated overnight. Patient remains on room air. Continues to have dysarthria and slurred speech. States he is feeling slightly better but still very weak. Vitals/I&O/Wt Last Vital Signs Temp 98.2 F 10/08/24 08:00 Pulse 70 10/08/24 08:00 Resp 17 10/08/24 08:00 BP 174/99 10/08/24 08:46 Pulse Ox 98 10/08/24 08:00 O2 Del Method Room Air 10/08/24 08:00 10/07/24 10/08/24 10/08/24 22:59 06:59 14:59 Intake Total 400 / 400 1220 / 1220 Output Total 120 / 120 Balance -120 / -120 400 / 280 1220 / 1220 Weight last 48 hrs Weight 93.44 kg Physical Exam Narrative: General: No acute distress, AO x3, slurred speech HEENT: PERRLA, pupils bilaterally equal and reactive Chest: Normal vesicular breath sounds, no added sounds, equal good air entry bilaterally CVS: S1-S2 regular, no murmurs, no tachycardia, no gallops, no rubs Abdomen: Soft, nontender, no organomegaly, bowel sounds present Const: COMMON NORMALS: patient oriented x3 Neuro: HARJINDER COMA SCALE: document GCS findings [place] coma scale eye opening: Spontaneous [place] coma scale verbal response: Orientated [place] coma scale motor response: Obey commands [place] coma scale total score: 15 COMMON NORMALS: patient oriented x3 and moves all extremities COORDINATION/BALANCE: No [id number] test normal and No jyxa-on-aban test normal MOTOR EXAM: no asterixis, Motor fasciculations not present and Abnormal motor strength present (All 4 limbs 3/5) PLANTAR REFLEX: downgoing: bilateral COORDINATION: xvysfr-my-yurx test abnormal and vmbl-[id number] test abnormal Skin: NARRATIVE SKIN EXAM: Generalized plaque, scaly, erythematous LESIONS: lesion noted OTHER: Data 10/08/24 06:45 10/08/24 15:14 A&P Assessment and plan (1) Acute ischemic multifocal multiple vascular territories stroke: CT head on admission was read by radiologist as age-indeterminate subcortical/deep white matter hypodensities in the superior left frontal lobe. Case discussed in detail with neurology team today. CT head as per neurologist with concern for left pontine infarct. Left pontine infarct would explain patient's current symptoms. Concern for embolic stroke. Patient would most likely need event monitor as an outpatient. teletypesetter monitor. If any concern for A-fib will plan for anticoagulation. (2) Generalized muscle weakness: CT imaging not really consistent cannot really answer my generalized weakness and slurred speech. Patient not have any new progressive symptoms. Cannot rule out dermatomyositis versus polymyositis autoimmune disorders Appreciate mildly elevated ESR, normal CBC, CRP, mildly elevated LDH. Follow-up JUSTYNA panel, and aldolase levels. Hold off on statins. (3) Cerebrovascular accident: Appreciate CT head and CTA neck results.. Echocardiogram pending. Aspirin 81 mg daily. Holding off on statin as above. Appreciate A1c, lipid panel. PT/OT/speech evaluation. (4) Uncontrolled blood glucose: DKA ruled out. Uncontrolled type 2 diabetes mellitus. A1c of more than 10. No concerns for DKA. NS at 75 cc/h. (5) Type 2 diabetes mellitus: Continue with home dose of Lantus 30 units daily. Insulin sliding scale moderate dose protocol ACHS. Uptitrate Lantus depending on insulin requirements in next 24 hours. (6) Hypertension: Goal blood pressure less than 140/90 mmHg. Blood pressures remain elevated. Add amlodipine 10 mg oral daily, hydralazine 75 mg 3 times daily, losartan 50 mg oral daily. Continue with home dose of metoprolol. IV hydralazine 10 mg every 4 hours as needed for systolic of more than 160 mmHg. Will change prescription goal blood pressure of less than 140/90 mmHg in 24 hours. Qualifiers: Hypertension type: essential hypertension Qualified Code(s): I10 - Essential (primary) hypertension (7) Slurred speech: Plan Full code Dysphagia level 6 diet. Advance as per speech evaluation. Carb consistent diet Protonix for PUD prophylaxis Heparin 5000 Q12 hourly for DVT prophylaxis Discharge plan: Discussed in detail with the patient. He lives by himself. Patient has not been able to take care of himself recently. Has been having frequent falls. Has been feeling sluggish and dropping things. Patient would benefit from SNF placement for rehabilitation and is agreeable. PDMP PDMP Reviewed: Not Reviewed Attestations Medical Necessity Statement*: Requires further hospitalization for management of generalized weakness, slurred speech, dysarthria with concern for left pontine stroke, uncontrolled hypertension and type of diabetes mellitus while safe discharge planning is sought Diagnoses Acute ischemic multifocal multiple vascular territories stroke I63.89 Generalized muscle weakness M62.81 Cerebrovascular accident I63.9 Uncontrolled blood glucose R73.09 Type 2 diabetes mellitus E11.9 Essential hypertension I10 Hypertension type: essential hypertension Slurred speech R47.81
[2024-10-08 11:25] LABS: Glucose Point of Care 302 mg/dL (70-110)
[2024-10-08] MEDS: hyDRALAzine 25 mg Tablet PO (14:50)
[2024-10-08] MEDS: sodium chloride 0.9% 1,000 ML 75 ML IV (14:50)
[2024-10-08] MEDS: hyDRALAzine 50 mg Tablet PO (15:15)
--- NOTE | 2024-10-08 15:36 | PM.CONSULT ---
Providers/Reason For Consult Consulting Physician/Specialty*: Dr. 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 He had trouble swallowing and he could not speak because his speech was so slurred. He noticed that his right side of his face was weak. He never had a stroke in the past. He decided to come to the emergency department because he could not stop falling down. He lives alone. He has longstanding history of diabetes and hypertension. He suffers from psoriasis. At 1 point he was diagnosed with congestive heart failure and was said to have a 20% ejection fraction. His echocardiogram has not been performed yet. His EKG here suggested left atrial enlargement but showed normal sinus rhythm. He has not been on a blood thinner. Since arrival he is on aspirin. CT angiogram performed yesterday showed no large vessel occlusion or stenosis. His CT head showed several subcortical lesions in the left frontal and a probable chronic infarct subcortical left arcuate fibers frontal lobe. There may be a left pontine infarct. He feels like he is not getting any worse. He just could not get better and he was falling down and could not stay alone any further. He is in the process of workup for his acute stroke. Review of Systems Const: Denies: fever(s), change in weight or fatigue Eyes: Denies: change in vision, blurry vision, blind spots, photophobia, eye discomfort, seeing flashes or other (Glaucoma) ENMT: Denies: odynophagia, hoarseness, change in hearing, tinnitus, sinus pain or other (Loss of taste/smell) Card: Denies: chest pain, palpitations, syncope or other (Calf cramps) Resp: Denies: dyspnea, non-productive cough, wheezing or hemoptysis GI: Denies: abdominal pain, nausea, heartburn, diarrhea, constipation or hematochezia : Denies: urinary frequency or urinary incontinence Musc: Denies: neck pain, muscle weakness or other (Muscle pain) Skin/Breast: Denies: rash, new lesions or breast mass Neuro: Reports: numbness in extremities, weakness in extremities, sensory changes, lack of coordination, difficulty walking, frequent falls, dizziness, Slurred speech present and other (Previously diagnosed with sleep apnea but he could not stand the mask.); Denies: headache(s) or seizure-like activity Psych: Reports: depression (Previously diagnosed); Denies: irritability, memory loss (He indicates his memory is good), difficulty concentrating or other (Personality changes) Endo: Denies: polyuria, polydipsia, excessive sweating or change in body appearance Hector/Lymph: Denies: easy bruising, easy bleeding or enlarged lymph nodes Medications/Allergies Home Medications ?Medication ?Instructions ?Recorded ?Confirmed ?Last Taken ?Type aspirin 81 mg tablet,delayed 81 mg PO QDAY 08/14/19 10/07/24 10/07/24 History release (Adult Low Dose Aspirin) insulin glargine 100 unit/mL (3 30 unit (0.3 mL) SUBCUT DAILY 30 01/11/23 10/07/24 Unknown Rx mL) subcutaneous pen (Lantus days #45 mL Solostar U-100 Insulin) amlodipine 10 mg tablet 10 mg PO DAILY 10/07/24 10/07/24 10/07/24 History atorvastatin 80 mg tablet 80 mg PO DAILY 10/07/24 10/07/24 10/07/24 History clonidine HCl 0.2 mg tablet 0.2 mg PO BID 10/07/24 10/07/24 10/07/24 History glipizide 10 mg tablet, extended 10 mg PO BID 10/07/24 10/07/24 10/07/24 History release 24 hr hydrochlorothiazide 12.5 mg capsule 12.5 mg PO QAM 10/07/24 10/07/24 10/07/24 History irbesartan 300 mg tablet 300 mg PO DAILY 10/07/24 10/07/24 10/07/24 History metformin 500 mg tablet 1,000 mg PO BID 10/07/24 10/07/24 10/07/24 History metoprolol succinate 100 mg 100 mg PO BID 10/07/24 10/07/24 10/07/24 History tablet,extended release 24 hr omeprazole 20 mg capsule,delayed 20 mg PO BID 10/07/24 10/07/24 10/07/24 History release triamterene 75 1 tab PO DAILY 10/07/24 10/07/24 10/07/24 History mg-hydrochlorothiazide 50 mg tablet Allergies Allergy/AdvReac Type Severity Reaction Status Date / Time lisinopril Allergy cough Verified 10/07/24 15:46 Current Medications Generic Name Dose Route Start Last Admin Trade Name Mark PRN Reason Stop Dose Admin Amlodipine Besylate 10 mg 10/08/24 09:05 10/08/24 09:51 Amlodipine 10 Mg Tablet PO 10 mg DAILY TD Administration Aspirin 81 mg 10/08/24 09:00 10/08/24 07:44 Aspirin 81 Mg Ec Tablet PO 81 mg DAILY TD Administration Docusate Sodium 100 mg 10/07/24 20:09 10/08/24 07:44 Docusate Sodium 100 Mg Capsule PO 100 mg BID TD Administration Heparin Sodium (Porcine) 5,000 unit 10/07/24 20:09 10/08/24 07:44 Heparin 5,000 Unit/Ml Inj 1 Ml SUBCUT 5,000 unit Q12H TD Administration Sodium Chloride 1,000 mls @ 75 mls/hr 10/07/24 18:30 10/08/24 14:50 Sodium Chloride 0.9% IV 75 mls/hr .[id number] TD Administration Insulin Human Lispro 0 unit 10/07/24 20:09 10/08/24 11:31 Insulin Lispro 100 Unit/1 Ml SUBCUT 10 unit WM&BEDTIME TD Administration Protocol Metoprolol Succinate 100 mg 10/07/24 20:09 10/08/24 07:44 Metoprolol Succinate Er (24 Hr) 100 Mg Tablet PO 100 mg BID TD Administration Pantoprazole Sodium 40 mg 10/08/24 09:00 10/08/24 07:43 Pantoprazole 40 Mg Sdv IVP 40 mg DAILY TD Administration PFSH Acute PFSH: Medical History (Updated 10/08/24 @ 15:52 by Evelyn Briscoe MD) Attention-deficit hyperactivity disorder, predominantly inattentive type Alcohol dependence, in remission Bipolar disorder, in full remission, most recent episode mixed ADHD Raynauds disease Neuropathy Psoriatic arthritis DDD (degenerative disc disease) Sleep apnea GERD (gastroesophageal reflux disease) Hypertension Hyperlipidemia Diabetes Bipolar 1 disorder Schizophrenia Depression Surgical History H/O total knee replacement Family History Other Hypertension Denies family history of Diabetes Chronic kidney disease (CKD) Lung disease Cancer Stroke Social History Smoking and tobacco/nicotine status: never used tobacco/nicotine Alcohol intake: never Substance/Drug Use: never Adopted: No Lives independently: Yes Housing: Manufactured/Mobile home Marital status: Single Number of children: 0 Highest education level completed: 11th Grade service: No Current occupational status: retired Current gender identity: Male Vitals/I&O/Wt Last Vital Signs Temp 98.3 F 10/08/24 11:29 Pulse 66 10/08/24 11:29 Resp 17 10/08/24 11:29 BP 171/101 10/08/24 11:29 Pulse Ox 98 10/08/24 11:29 O2 Del Method Room Air 10/08/24 11:29 10/08/24 10/08/24 10/08/24 06:59 14:59 22:59 Intake Total 400 / 400 1220 / 1220 Balance 400 / 280 1220 / 1220 Weight last 48 hrs Weight 206 lb Physical Exam Narrative: GENERAL: The patient was slightly overweight MENTAL STATUS: Speech dysarthric. Patient is fully oriented. Memory intact for recent events. Mood was euthymic. CRANIAL NERVES: Visual acuity was intact to reading small print. Visual jhaveri were full to confrontation, direct and consensual. Extraocular movements were full without nystagmus. Both slow pursuit and saccadic eye movements were normal. PERRLA. Face was symmetric at rest and with grimace. Facial sensation was intact in all three distributions of the fifth cranial nerve bilaterally to touch. Hearing was intact to soft spoken voice. Tongue and palate were midline at rest and with protrusion of the tongue and elevation of the palate. Shoulders were symmetric at rest and with shoulder shrug. MOTOR: He has cerebellar tremor and cerebellar weakness in all 4 extremities with increased oscillation induced by perturbations. SENSATION: Pin, touch slightly reduced in the right side of the face. COORDINATION: He has a wide-based. He tips easily from [id number] and does not protect himself. DEEP TENDON REFLEXES: 2/4 throughout. GAIT: He is not safe to ambulate by himself. He staggers from [id number] and hips easily. Midline stability impaired. HEENT: Normocephalic without dysmorphic features. Conjunctivae were not injected and sclerae were nonicteric. NECK: Carotid upstroke was strong bilaterally without bruits. The thyroid was not enlarged and there were no palpable lymph nodes. CHEST: Clear to auscultation. CARDIOVASCULAR: The heart sounds were normal without murmur or gallop. Regular rate and rhythm. EXTREMITIES: There was no edema or cyanosis. The skin was unremarkable. The spine exhibited normal thoracic kyphosis and normal lumbar lordosis without deformities. Data 10/08/24 06:45 10/08/24 06:45 CT Head: My impression: It looks like he has a small lesion in the left mitra that can be witnessed on several cuts. Also left frontal opercular slightly subcortical lesion consistent with a subacute stroke. A&P Assessment and plan (1) Acute ischemic multifocal multiple vascular territories stroke: His symptoms are consistent with a brainstem stroke and I think it is probably left mitra based on his CAT scan. He also has a subcortical lesion in the left frontal region and possibly left parietal. 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 Even in the case of multiple strokes in multiple vascular distributions, anticoagulants are not recommended unless atrial fibrillation is definitely diagnosed. He has some risks for atrial fibrillation including untreated obstructive sleep apnea (based on his history) and cardiomyopathy. Echocardiogram with bubble study and 30-day monitor are indicated. He is extremely unsteady and does not appropriately protect himself during gait. I do not think he can return home and he needs to be in a rehab situation. He is agreeable to that. (2) Cardiomyopathy: I presume his cardiomyopathy is ischemic although he has not had any workup here and he has a remote history of alcoholism so I cannot rule out alcoholic contribution to his cardiomyopathy. Plan on echocardiogram. Qualifiers: Cardiomyopathy type: ischemic Qualified Code(s): I25.5 - Ischemic cardiomyopathy (3) Psoriasis diffusa: (4) Sleep apnea: He should have a sleep study as an outpatient after discharge. PDMP PDMP Reviewed: Not Reviewed Consult Attestations Medical Necessity Statement: 63-year-old man falling multiple times at home probably having multiple strokes in multiple vascular distributions. Coding Level of Care Code 98686 Diagnoses Acute ischemic multifocal multiple vascular territories stroke I63.89 Ischemic cardiomyopathy I25.5 Cardiomyopathy type: ischemic Psoriasis diffusa L40.8 Sleep apnea G47.30
[2024-10-08 15:38] LABS: Anion Gap 14.8 (5-19); Blood Urea Nitrogen 12 mg/dL (8-23); Calcium 9.3 mg/dL (8.5-10.5); Carbon Dioxide 25 mmol/L (22-29); Chloride 98 mmol/L (98-107); Creatinine Clr Calc Pharmacy 110.3613; Glomerular Filtration Rate 97.6 mL/min (90-130); Glucose 230 mg/dL (65-115); Osmolality Calculated 285 mOsm/kg (285-295); Potassium 3.8 mmol/L (3.5-5.1); Sodium 134 mmol/L (136-145)
[2024-10-08 16:26] LABS: Glucose Point of Care 256 mg/dL (70-110)
[2024-10-08 20:48] LABS: Glucose Point of Care 147 mg/dL (70-110)
--- NOTE | 2024-10-08 21:03 | PC.NURSE ---
Found wallet in [facility] which was locked up by ANGEL Olmstead and ANGEL Linton. Gave to the patient. Money in wallet as of 2099: Counted in from of Harinder in security, Dhara [employer] Clerk, Beverly ORTIZ, the patient and credit underwriter. Bill fold - NAJERA $100 X4 $20 X4 $10 X3 $5 X1 $1 X9 $524 total Other contents: ID, Discover card, Mastercard debit card, [place] Visa card, 1 blank check, Insurance card, Business cards, Social Security card, Slate Visa card, Immunization card, Old Phone card, misc. slips of paper. Patient emptied pockets of pants he was wearing and Beverly ORTIZ went through other belongings in room also in front of the patient - pocket knife, cell phone, 3 pieces of mail. Patient kept $20.00 ($10X1, $5X1 and $1X5) on his person, his cell phone and his car keys and allowed us to place his wallet along with all of the rest of it's contents (including $504 in najera), 3 pieces of mail and the pocket knife back in the [facility].
[2024-10-08] MEDS: hyDRALAzine 25 mg Tablet 75 MG PO (21:30)
--- NOTE | 2024-10-08 21:46 | PC.NURSE ---
Addendum entered by Beverly Saunders RN 10/09/24 00:25: Notified Dr. Harrison of patient's behaviors at 2100, received an order for zyprexa 10mg IM once. Patient ended up not requiring medication. At 14, notified Dr. Harrison via VOALTE secure messenger; patient had removed IV and had a BP of 182/100. Dr. Harrison gave order to hold off on IV placement and to change prn hydralazine order from IVP to PO. Original Note: At 2019 HCAR Tong went to patient's room to check his blood sugar. The patient would not let her into the room. CHAR Tong notified this nurse and ROSALIND Little. This nurse and ROSALIND Little went to patient's room and found him blocking the door. The patient stated that he wasn't okay, that he was tied up, and that he wanted 911 called. He refused to let anyone enter the room or open the door. This nurse called Paul JulesShank Sander and Security Harinder to the floor. LADAN Jules and Harinder asked the patient to let staff enter the room and the patient refused. LADAN Jules and Harinder then opened the door and entered the room. The patient was found wearing only shorts and had been sitting on the floor in front of the door. When asked what was wrong, the patient stated I've been tied up and restrained and you need to call the police, I want the police here. The patient was non-cooperative and required many attempts at redirection in order to get him to sit on the bed safely. He had removed all telemetry wires, the IV from his left AC, and had taken the IV pump, tubing, and bag of saline off the IV pole. Various items were scattered around the room. It took multiple attempts at verbal de-escalation to calm the patient. He continued to state that he needed his money, that it had been handed off to someone else, and he needed it in case I need to get away quickly . The patient was eventually calm enough to move to a room closer to the nurses station and was cooperative in doing so. ANGEL Cotto, LADAN Jules, and Harinder were able to verbally de-escalate the patient and calm him down enough to go through his wallet, document his money, and document other belongings(see other nursing note).
--- NOTE | 2024-10-08 22:14 | PC.NURSE ---
At approx. 2019 this PELTS SKINNER went to enter the room of the patient to get his blood sugar. When this PELTS SKINNER pushed the door open, it immediately closed. PELTS SKINNER asked the patient if he was okay to which he responded that he was just sitting. PELTS SKINNER asked if she could enter to get his blood sugar and patient said No, not right now . Patients nurse Beverly RN and ROSALIND Little were then notified and went to address the patient. ANGEL Cotto was also notified.
[2024-10-09] VITALS (10 sets, daily range): BP systolic 142–184; BP diastolic 66–90; PULSE 53–72; RESP 16–18; TEMP 36.3–36.7; O2SAT 96–100
[2024-10-09] MEDS: hyDRALAzine 10 mg Tablet PO ×2 (00:27→23:42)
[2024-10-09 05:44] LABS: Basophils # 0.1 10^3/uL (0.0-0.1); Basophils % 0.6 %; Eosinophils # 0.1 10^3/uL (0.0-0.8); Eosinophils % 1.8 %; Hematocrit 42.4 % (37-53); Lymphocytes # 1.7 10^3/uL (0.8-4.8); Lymphocytes % 22.4 %; Mean Corpuscular HGB Conc 35.6 g/dL (30-55); Mean Corpuscular Hemoglobin 32.1 pg (27-33); Mean Platelet Volume 9.5 fL (7.4-10.4); Monocytes # 0.6 10^3/uL (0.2-0.9); Monocytes % 7.3 %; Neutrophils # 5.25 10^3/uL (1.8-7.7); Neutrophils % 67.5 %; Nucleated Red Blood Cells % 0 %; Platelet Count 260 10^3/cmm (157-399); Red Blood Count 4.71 10^6/uL (3.85-5.65); Red Cell Distribution Width 11.8 % (12.1-15.1); White Blood Count 7.78 10^3/uL (3.29-11.43)
[2024-10-09 06:12] LABS: Alanine Aminotransferase 10 U/L (0-41); Albumin Level 2.9 g/dL (3.5-5.2); Alkaline Phosphatase 62 U/L (40-130); Anion Gap 13.1 (5-19); Aspartate Amino Transferase 13 U/L (0-40); Blood Urea Nitrogen 11 mg/dL (8-23); Calcium 8.7 mg/dL (8.5-10.5); Carbon Dioxide 26 mmol/L (22-29); Chloride 102 mmol/L (98-107); Creatinine Clr Calc Pharmacy 147.0194; Globulin 2.7 g/dL (1.3-4.6); Glomerular Filtration Rate 136.1 mL/min (90-130); Glucose 89 mg/dL (65-115); Magnesium 1.4 mg/dL (1.7-2.3); Osmolality Calculated 285 mOsm/kg (285-295); Phosphorus 3.3 mg/dL (2.5-4.5); Potassium 3.1 mmol/L (3.5-5.1); Sodium 138 mmol/L (136-145); Total Bilirubin 0.3 mg/dL (0.15-1.2); Total Protein 5.6 g/dL (6.6-8.7)
[2024-10-09 06:20] LABS: Glucose Point of Care 92 mg/dL (70-110)
[2024-10-09] MEDS: aspirin 81 mg EC Tablet PO (08:02)
[2024-10-09] MEDS: amlodipine 10 mg Tablet PO (08:03)
[2024-10-09] MEDS: losartan 50 mg Tablet PO (08:03)
[2024-10-09] MEDS: metoprolol succinate ER (24 HR) 100 mg Tablet PO (08:04)
[2024-10-09] MEDS: docusate sodium 100 mg Capsule PO ×2 (08:04→17:27)
[2024-10-09] MEDS: insulin glargine 100 units/1 mL 30 UNIT SUBCUT ×2 (08:04→17:27)
[2024-10-09] MEDS: hyDRALAzine 25 mg Tablet 75 MG PO (08:04)
[2024-10-09] MEDS: heparin 5,000 unit/mL INJ 1 mL 5000 UNIT SUBCUT ×2 (08:04→19:57)
--- NOTE | 2024-10-09 09:49 | PC.CHAP ---
Pastoral Care Encounter/Spiritual Assessment Type of Contact [] Declined flare stitcher visit [] Patient/Family/Request visit [] Outpatient visit [] Follow-up visit [] Physician referral [] Code/Alert [] Routine visit [] Staff referral [] Actively dying [] Patient sleeping [] Family support [] [] Out of room [] Palliative care [] [] Receiving care in room [] Pre-surgical visit [] Trauma [] Long length of stay [] ICU visit [] Other: Relational/Emotional Strength [] Patient feels connected with others/family/visitors/staff [] Distress [] Loneliness/isolation [] Abandonment Spirituality of Patient [] Person of Jessica [] Attends Voodoo of their Jessica [] Believes in Prayer [] Reads Bible or Yazidism materials [] There are Spiritual issues to be addressed Diver'S Tender Interventions [] Prayer [] Active listening [] Non-anxious presence [] Spiritual/emotional support [] Crisis/trauma care [] Spiritual counseling [] Bereavement support [] Provided bereavement packet [] Provided Bible/devotional materials [] Provided toy/stuffed animal, coloring book to patient or family member [] Provided Communion [] Anointing/Piqua [] Salvation [] Completed spiritual assessment [] Other: Impact on Illness or Injury [] Angry [] Fearful [] Anxious [] Often cries [] Exhaustion [] Unable to work [] Unable to attend episcopal [] Unable to walk/stand [] Unable to read [] Unable to drive [] Unable to eat/drink [] Unable to sleep [] Unable to be with family [] Patient intubated [] Other: Summary Time spent with patient
[2024-10-09 11:26] LABS: Glucose Point of Care 275 mg/dL (70-110)
[2024-10-09] MEDS: insulin lispro 100 unit/1 mL SUBCUT ×2 (11:38→17:27)
--- NOTE | 2024-10-09 12:19 | PC.SOCIAL ---
IMM Update pg 2 of IMM updated and reviewed w patient. Copy provided and copy dated, initialed and placed in chart.
--- NOTE | 2024-10-09 13:03 | P.PN_ITS ---
Subjective 2 Subjective: No acute events overnight. Patient's blood pressures have been elevated overnight. Patient remains on room air. Continues to have dysarthria and slurred speech. States he is feeling slightly better but still very weak. Vitals/I&O/Wt Last Vital Signs Temp 97.5 F L 10/09/24 11:36 Pulse 58 L 10/09/24 11:36 Resp 16 10/09/24 11:36 BP 157/78 10/09/24 11:36 Pulse Ox 97 10/09/24 11:36 O2 Del Method Room Air 10/09/24 11:36 10/08/24 10/09/24 10/09/24 22:59 06:59 14:59 Intake Total 545 / 1765 360 / 2125 1320 / 1320 Balance 545 / 1765 360 / 2125 1320 / 1320 Weight last 48 hrs Weight 93.259 kg Weight 93.44 kg Physical Exam 2 Narrative: General: No acute distress, AO x3, slurred speech HEENT: PERRLA, pupils bilaterally equal and reactive Chest: Normal vesicular breath sounds, no added sounds, equal good air entry bilaterally CVS: S1-S2 regular, no murmurs, no tachycardia, no gallops, no rubs Abdomen: Soft, nontender, no organomegaly, bowel sounds present Const: COMMON NORMALS: patient oriented x3 GENERAL APPEARANCE: cooperative and lethargic ORIENTATION/CONSCIOUSNESS: Yes confused and Yes lethargic Neuro: HARJINDER COMA SCALE: document GCS findings [place] coma scale eye opening: Spontaneous [place] coma scale verbal response: Orientated [place] coma scale motor response: Obey commands [place] coma scale total score: 15 COMMON NORMALS: patient oriented x3 and moves all extremities SENSORIUM/ORIENTATION: Yes lethargic COORDINATION/BALANCE: No [id number]-[id number] test normal and No vzbp-aj-razl test normal MOTOR EXAM: no asterixis, Motor fasciculations not present and Abnormal motor strength present (All 4 limbs 3/5) PLANTAR REFLEX: downgoing: bilateral COORDINATION: ecmdzq-df-dasd test abnormal and rnot-uw-[id number] test abnormal Skin: NARRATIVE SKIN EXAM: Generalized plaque, scaly, erythematous LESIONS: lesion noted OTHER: Data 10/09/24 05:33 10/09/24 05:33 A&P Assessment and plan (1) Acute ischemic multifocal multiple vascular territories stroke: CT head on admission was read by radiologist as age-indeterminate subcortical/deep white matter hypodensities in the superior left frontal lobe. Case discussed in detail with neurology team today. CT head as per neurologist with concern for left pontine infarct. Left pontine infarct would explain patient's current symptoms. Concern for embolic stroke. Patient would most likely need event monitor as an outpatient. acetylene cutter. If any concern for A-fib will plan for anticoagulation. (2) Generalized muscle weakness: CT imaging not really consistent cannot really answer my generalized weakness and slurred speech. Patient not have any new progressive symptoms. Cannot rule out dermatomyositis versus polymyositis autoimmune disorders Appreciate mildly elevated ESR, normal CBC, CRP, mildly elevated LDH. Follow-up JUSTYNA panel, and aldolase levels. Hold off on statins. (3) Cerebrovascular accident: Appreciate CT head and CTA neck results.. Echocardiogram pending. Aspirin 81 mg daily. Holding off on statin as above. Appreciate A1c, lipid panel. PT/OT/speech evaluation. (4) Uncontrolled blood glucose: DKA ruled out. Uncontrolled type 2 diabetes mellitus. A1c of more than 10. No concerns for DKA. NS at 75 cc/h. (5) Type 2 diabetes mellitus: Continue with home dose of Lantus 30 units daily. Insulin sliding scale moderate dose protocol ACHS. Uptitrate Lantus depending on insulin requirements in next 24 hours. (6) Hypertension: Goal blood pressure less than 140/90 mmHg. Blood pressures remain elevated. Add amlodipine 10 mg oral daily, hydralazine 75 mg 3 times daily, losartan 50 mg oral daily. Continue with home dose of metoprolol. IV hydralazine 10 mg every 4 hours as needed for systolic of more than 160 mmHg. Will change prescription goal blood pressure of less than 140/90 mmHg in 24 hours. Qualifiers: Hypertension type: essential hypertension Qualified Code(s): I10 - Essential (primary) hypertension (7) Slurred speech: (8) Cognitive decline: Plan Full code Dysphagia level 6 diet. Advance as per speech evaluation. Carb consistent diet Protonix for PUD prophylaxis Heparin 5000 Q12 hourly for DVT prophylaxis Discharge plan: Discussed in detail with the patient. He lives by himself. Patient has not been able to take care of himself recently. Has been having frequent falls. Has been feeling sluggish and dropping things. Patient would benefit from SNF placement for rehabilitation and is agreeable. Plan for the day: Patient confused and lethargic today as he received 10 mg of IM Zyprexa overnight. Will request for no further IV and IM antipsychotic medications. Start on Abilify 5 mg oral daily. Ambien 5 mg nightly. Appreciate Occupational Therapy evaluation. Found to have significant cognitive impairment. Patient does carry history of schizophrenia and depression in the past. Not on any medications. Will confirm with outpatient pharmacy. Blood pressure is better controlled. Goal blood pressure less than 140/90 MAG. Increase hydralazine to 100 mg 3 times daily. Continue amlodipine 10 mg oral daily. Increase losartan to 100 mg daily. Blood sugars better controlled. Fasting down to 80s today. Continue current dose of Lantus. Continue with sliding scale. Stop at bedtime Humalog. Continue physical therapy. Advance diet as per speech evaluation. Continue with aspirin, statin. Patient will need event monitor on discharge to rule out A-fib. Continue with telemetry monitoring for now. Hold off on anticoagulation as no documented A-fib till now. PDMP PDMP Reviewed: Last Reviewed 10/09/24 10:31 by Jules Miller MD Attestations 2 Medical Necessity Statement*: Requires further hospitalization for management of severe cognitive decline, generalized weakness with slurred speech in setting of multifocal multiple vascular territory stroke, uncontrolled hypertension and type 2 diabetes mellitus. Diagnoses Acute ischemic multifocal multiple vascular territories stroke I63.89 Generalized muscle weakness M62.81 Cerebrovascular accident I63.9 Uncontrolled blood glucose R73.09 Type 2 diabetes mellitus E11.9 Essential hypertension I10 Hypertension type: essential hypertension Slurred speech R47.81 Cognitive decline R41.89
[2024-10-09 13:38] LABS: Aldolase 4.8 U/L (< OR = 8.1)
[2024-10-09] MEDS: hyDRALAzine 50 mg Tablet 100 MG PO ×2 (13:55→19:57)
[2024-10-09 16:31] LABS: Glucose Point of Care 146 mg/dL (70-110)
[2024-10-09] MEDS: metoprolol succinate ER (24 HR) 50 mg Tablet PO (17:27)
[2024-10-09] MEDS: zolpidem 5 mg Tablet PO (19:57)
[2024-10-09 20:15] LABS: Glucose Point of Care 301 mg/dL (70-110)
[2024-10-10] VITALS (10 sets, daily range): BP systolic 161–194; BP diastolic 80–99; PULSE 51–68; RESP 16–19; TEMP 36.3–36.7; O2SAT 95–99
[2024-10-10] MEDS: hyDRALAzine 10 mg Tablet PO (03:47)
[2024-10-10 05:43] LABS: Basophils % 0.5 %; Eosinophils # 0.2 10^3/uL (0.0-0.8); Lymphocytes # 2.5 10^3/uL (0.8-4.8); Lymphocytes % 33.5 %; Mean Corpuscular HGB Conc 35.3 g/dL (30-55); Mean Corpuscular Hemoglobin 32.2 pg (27-33); Mean Corpuscular Volume 91.1 fl (82-101); Mean Platelet Volume 9.6 fL (7.4-10.4); Monocytes # 0.6 10^3/uL (0.2-0.9); Monocytes % 7.7 %; Neutrophils # 4.06 10^3/uL (1.8-7.7); Nucleated Red Blood Cells % 0 %; Platelet Count 275 10^3/cmm (157-399); Red Blood Count 4.72 10^6/uL (3.85-5.65); Red Cell Distribution Width 11.8 % (12.1-15.1); White Blood Count 7.38 10^3/uL (3.29-11.43)
[2024-10-10 06:11] LABS: Alanine Aminotransferase 11 U/L (0-41); Albumin Level 2.8 g/dL (3.5-5.2); Alkaline Phosphatase 58 U/L (40-130); Anion Gap 13.3 (5-19); Aspartate Amino Transferase 14 U/L (0-40); Blood Urea Nitrogen 11 mg/dL (8-23); Calcium 8.6 mg/dL (8.5-10.5); Carbon Dioxide 27 mmol/L (22-29); Chloride 100 mmol/L (98-107); Creatinine Clr Calc Pharmacy 147.4721; Globulin 2.7 g/dL (1.3-4.6); Glomerular Filtration Rate 136.1 mL/min (90-130); Glucose 75 mg/dL (65-115); Magnesium 1.3 mg/dL (1.7-2.3); Osmolality Calculated 282 mOsm/kg (285-295); Phosphorus 3.8 mg/dL (2.5-4.5); Potassium 3.3 mmol/L (3.5-5.1); Sodium 137 mmol/L (136-145); Total Bilirubin 0.3 mg/dL (0.15-1.2); Total Protein 5.5 g/dL (6.6-8.7)
[2024-10-10 06:17] LABS: Glucose Point of Care 83 mg/dL (70-110)
[2024-10-10] MEDS: insulin glargine 100 units/1 mL 30 UNIT SUBCUT ×2 (09:20→18:27)
[2024-10-10] MEDS: heparin 5,000 unit/mL INJ 1 mL 5000 UNIT SUBCUT ×2 (09:20→20:11)
[2024-10-10] MEDS: cloNIDine 0.3 mg/24 hr Patch 1 PATCH TRANSDERMA (09:21)
[2024-10-10] MEDS: hyDRALAzine 50 mg Tablet 100 MG PO ×3 (09:22→20:11)
[2024-10-10] MEDS: docusate sodium 100 mg Capsule PO ×2 (09:22→18:27)
[2024-10-10] MEDS: losartan 50 mg Tablet 100 MG PO (09:22)
[2024-10-10] MEDS: aspirin 81 mg EC Tablet PO (09:23)
[2024-10-10] MEDS: ARIPiprazole 10 mg Tablet 5 MG PO (09:23)
[2024-10-10] MEDS: pantoprazole 40 mg SDV IVP (09:23)
[2024-10-10] MEDS: amlodipine 10 mg Tablet PO (09:23)
[2024-10-10 11:19] LABS: Glucose Point of Care 226 mg/dL (70-110)
--- NOTE | 2024-10-10 12:01 | P.PN_ITS ---
Subjective 2 Subjective: No acute events overnight. Patient more awake and alert today. Denies any nausea, vomiting, headache. States he is feeling better. Blood pressure still elevated but better Vitals/I&O/Wt Last Vital Signs Temp 97.5 F L 10/10/24 12:00 Pulse 65 10/10/24 12:00 Resp 18 10/10/24 12:00 BP 165/99 10/10/24 12:00 Pulse Ox 98 10/10/24 12:00 O2 Del Method Room Air 10/10/24 12:00 10/09/24 10/10/24 10/10/24 22:59 06:59 14:59 Intake Total 780 / 2100 120 / 2220 480 / 480 Balance 780 / 2100 120 / 2220 480 / 480 Weight last 48 hrs Weight 93.894 kg Weight 93.259 kg Physical Exam 2 Narrative: General: No acute distress, AO x3, slurred speech HEENT: PERRLA, pupils bilaterally equal and reactive Chest: Normal vesicular breath sounds, no added sounds, equal good air entry bilaterally CVS: S1-S2 regular, no murmurs, no tachycardia, no gallops, no rubs Abdomen: Soft, nontender, no organomegaly, bowel sounds present Const: COMMON NORMALS: patient oriented x3 GENERAL APPEARANCE: cooperative Neuro: HARJINDER COMA SCALE: document GCS findings [place] coma scale eye opening: Spontaneous [place] coma scale verbal response: Orientated Harjinder coma scale motor response: Obey commands Harjinder coma scale total score: 15 COMMON NORMALS: patient oriented x3 and moves all extremities COORDINATION/BALANCE: No haxbyj-sy-dwtl test normal and No emvo-du-jiey test normal MOTOR EXAM: no asterixis, Motor fasciculations not present and Abnormal motor strength present (All 4 limbs 3/5) PLANTAR REFLEX: downgoing: bilateral COORDINATION: f guhtn-vk-uyre test abnormal and xwwe-ov-uvdw test abnormal Skin: NARRATIVE SKIN EXAM: Generalized plaque, scaly, erythematous LESIONS: lesion noted OTHER: Data 10/10/24 05:28 10/10/24 05:28 A&P Assessment and plan (1) Acute ischemic multifocal multiple vascular territories stroke: CT head on admission was read by radiologist as age-indeterminate subcortical/deep white matter hypodensities in the superior left frontal lobe. Case discussed in detail with neurology team today. CT head as per neurologist with concern for left pontine infarct. Left pontine infarct would explain patient's current symptoms. Concern for embolic stroke. Patient would most likely need event monitor as an outpatient. electronic device monitor. If any concern for A-fib will plan for anticoagulation. (2) Generalized muscle weakness: CT imaging not really consistent cannot really answer my generalized weakness and slurred speech. Patient not have any new progressive symptoms. Cannot rule out dermatomyositis versus polymyositis autoimmune disorders Appreciate mildly elevated ESR, normal CBC, CRP, mildly elevated LDH. Follow-up JUSTYNA panel, and aldolase levels. Hold off on statins. (3) Cerebrovascular accident: Appreciate CT head and CTA neck results.. Echocardiogram pending. Aspirin 81 mg daily. Holding off on statin as above. Appreciate A1c, lipid panel. PT/OT/speech evaluation. (4) Uncontrolled blood glucose: DKA ruled out. Uncontrolled type 2 diabetes mellitus. A1c of more than 10. No concerns for DKA. NS at 75 cc/h. (5) Type 2 diabetes mellitus: Continue with home dose of Lantus 30 units daily. Insulin sliding scale moderate dose protocol ACHS. Uptitrate Lantus depending on insulin requirements in next 24 hours. (6) Hypertension: Goal blood pressure less than 140/90 mmHg. Blood pressures remain elevated. Add amlodipine 10 mg oral daily, hydralazine 75 mg 3 times daily, losartan 50 mg oral daily. Continue with home dose of metoprolol. IV hydralazine 10 mg every 4 hours as needed for systolic of more than 160 mmHg. Will change prescription goal blood pressure of less than 140/90 mmHg in 24 hours. Qualifiers: Hypertension type: essential hypertension Qualified Code(s): I10 - Essential (primary) hypertension (7) Slurred speech: (8) Cognitive decline: Plan Full code Dysphagia level 6 diet. Advance as per speech evaluation. Carb consistent diet Protonix for PUD prophylaxis Heparin 5000 Q12 hourly for DVT prophylaxis Discharge plan: Discussed in detail with the patient. He lives by himself. Patient has not been able to take care of himself recently. Has been having frequent falls. Has been feeling sluggish and dropping things. Patient would benefit from SNF placement for rehabilitation and is agreeable. Plan for the day: Blood pressure is elevated. Goal blood pressure less than 140/90 mmHg. Patient back to baseline mentation today. Low likelihood of press syndrome. Continues to have bradycardia. Stop metoprolol. Continue with amlodipine 10 mg oral daily, hydralazine 100 mg 3 times daily, losartan 100 mg daily. Add clonidine 0.3 patch. Uptitrate as for goal blood pressures. If needed will add chlorthalidone. Telemonitoring. Monitor blood sugars. Continue with Lantus 30 units twice daily, sliding scale AC. Start on 20 mEq of oral potassium twice daily for persistent hypokalemia. Replace 2 g of IV magnesium and start on oral mag sulfate. Recheck BMP and magnesium in AM. Echocardiogram pending. Advance diet as per speech evaluation. Recheck BMP and magnesium level in AM. Discharge plan: Plan to discharge to SNF within next 24 hours if blood pressure is better controlled. Patient has been accepted to SNF and has achieved prior Auth. PDMP PDMP Reviewed: Last Reviewed 10/09/24 10:31 by Jules Miller MD Attestations 2 Medical Necessity Statement*: Requires further hospitalization for management of stroke, uncontrolled hypertension as antihypertensives were adjusted, hypomagnesemia and hypokalemia while safe discharge planning is sought. Diagnoses Acute ischemic multifocal multiple vascular territories stroke I63.89 Generalized muscle weakness M62.81 Cerebrovascular accident I63.9 Uncontrolled blood glucose R73.09 Type 2 diabetes mellitus E11.9 Essential hypertension I10 Hypertension type: essential hypertension Slurred speech R47.81 Cognitive decline R41.89
[2024-10-10] MEDS: potassium chloride ER 20 mEq Tablet 40 MEQ PO (12:56)
[2024-10-10] MEDS: insulin lispro 100 unit/1 mL SUBCUT ×2 (12:58→18:26)
[2024-10-10] MEDS: magnesium sulfate premix 2 GM/50 ML PIGGYBACK IV (13:02)
[2024-10-10 16:40] LABS: Glucose Point of Care 206 mg/dL (70-110)
[2024-10-10] MEDS: isosorbide mononitrate ER 30 mg Tablet PO (18:27)
[2024-10-10] MEDS: magnesium oxide 400 mg tablet PO (18:27)
[2024-10-10 18:31] LABS: Anti-Double Strand DNA AB <1 IU/mL; Jo-1 Antibody <1.0 NEG AI (<1.0 NEG); SM/RNP Antibodies <1.0 NEG AI (<1.0 NEG); SS-B/LA IGG <1.0 NEG AI (<1.0 NEG); Scleroderma Ab(Scl-70) Ab <1.0 NEG AI (<1.0 NEG); Ss-A/Ro Igg <1.0 NEG AI (<1.0 NEG)
[2024-10-10 20:35] LABS: Glucose Point of Care 262 mg/dL (70-110)
[2024-10-11] MEDS: zolpidem 5 mg Tablet PO (00:45)
--- NOTE | 2024-10-11 00:49 | PC.NURSE ---
When Ambien was due, patient stated that he did not want it. Patient now states that he wants it Ambien administered late.
[2024-10-11 05:08] VITALS: BP 167/89; PULSE 75; RESP 18; TEMP 36.4; O2SAT 97
[2024-10-11 06:11] LABS: Alanine Aminotransferase 12 U/L (0-41); Alkaline Phosphatase 58 U/L (40-130); Anion Gap 12.4 (5-19); Aspartate Amino Transferase 14 U/L (0-40); Blood Urea Nitrogen 9 mg/dL (8-23); Calcium 8.7 mg/dL (8.5-10.5); Carbon Dioxide 27 mmol/L (22-29); Chloride 100 mmol/L (98-107); Creatinine Clr Calc Pharmacy 148.6036; Globulin 2.8 g/dL (1.3-4.6); Glomerular Filtration Rate 136.1 mL/min (90-130); Glucose 167 mg/dL (65-115); Osmolality Calculated 284 mOsm/kg (285-295); Potassium 3.4 mmol/L (3.5-5.1); Sodium 136 mmol/L (136-145); Total Bilirubin 0.3 mg/dL (0.15-1.2); Total Protein 5.8 g/dL (6.6-8.7)
[2024-10-11 06:13] LABS: Magnesium 1.4 mg/dL (1.7-2.3)
[2024-10-11 07:09] LABS: SARS Covid-2 Antigen Negative (Negative)
[2024-10-11 07:53] VITALS: BP 168/83; PULSE 71; RESP 17; TEMP 36.7; O2SAT 100
[2024-10-11] MEDS: insulin lispro 100 unit/1 mL SUBCUT (07:57)
[2024-10-11] MEDS: magnesium oxide 400 mg tablet PO (07:57)
[2024-10-11] MEDS: pantoprazole 40 mg SDV IVP (07:57)
[2024-10-11] MEDS: ARIPiprazole 10 mg Tablet 5 MG PO (07:57)
[2024-10-11] MEDS: heparin 5,000 unit/mL INJ 1 mL 5000 UNIT SUBCUT (07:57)
[2024-10-11 07:58] VITALS: BP 167/89
[2024-10-11] MEDS: docusate sodium 100 mg Capsule PO (07:58)
[2024-10-11] MEDS: losartan 50 mg Tablet 100 MG PO (07:58)
[2024-10-11] MEDS: amlodipine 10 mg Tablet PO (07:58)
[2024-10-11] MEDS: isosorbide mononitrate ER 30 mg Tablet PO (07:58)
[2024-10-11] MEDS: aspirin 81 mg EC Tablet PO (07:58)
[2024-10-11] MEDS: potassium chloride ER 20 mEq Tablet 40 MEQ PO ×2 (07:59→09:39)
[2024-10-11] MEDS: hyDRALAzine 50 mg Tablet 100 MG PO (07:59)
[2024-10-11] MEDS: insulin glargine 100 units/1 mL 30 UNIT SUBCUT (08:00)
--- NOTE | 2024-10-11 09:15 | PC.SOCIAL ---
IMM Update Pg. 2 of IMM updated; copy provided at bedside.
[2024-10-11] MEDS: magnesium sulfate premix 1 GM/100 ML PIGGYBACK IV (09:34)
--- NOTE | 2024-10-11 09:39 | P.DS_ITS ---
Discharge Providers 2 Date of Admission: 10/07/24 17:19 Date of Discharge: October 11, 2024 Attending Provider at Admission: Jules Miller MD Attending Provider at Discharge: Jules Miller MD Consults: Neurology: Dr. Briscoe Primary Care Provider: Azam Mendoza DO Diagnoses at Discharge Discharge Diagnosis (1) Acute ischemic multifocal multiple vascular territories stroke: Status: Acute (2) Generalized muscle weakness: Status: Acute (3) Cerebrovascular accident: Status: Acute (4) Uncontrolled blood glucose: Status: Acute (5) Type 2 diabetes mellitus: Status: Acute (6) Hypertension: Status: Acute Qualifiers: Hypertension type: essential hypertension Qualified Code(s): I10 - Essential (primary) hypertension (7) Slurred speech: Status: Acute (8) Cognitive decline: Status: Acute Reason for Visit 2 Reason for Visit: stroke like symptoms Hospital Course Hospital Course Mook Ruff is a 63 year old male with past medical history of hypertension, hyperlipidemia, diabetes mellitus presents to the ER today because of worsening generalized weakness, slurred speech and dysphagia Which started a week ago. Weakness started all of a sudden. Denies any progression. Complains of occasional fall. Complaints of occasionally dropping things from his hands because of weakness over last 1 week, feeling sluggish. He himself denies any cough, runny nose, headache, dizziness, fever. Denies any diurnal variation. States has not been able to take his medication over last 1 week. Patient does seem to be unreliable historian. Lives by himself. Patient was admitted to the hospital further evaluation and management. At first CT head was read as white matter multifocal ischemia. Neurology was consulted. Upon neurology review there was a concern for multifocal multi vascular territory stroke with concern for left pontine stroke. During hospitalization patient worked well with PT/OT and speech evaluation. Diet was advanced accordingly. As per occupational evaluation patient was found to have significant cognitive decline. He was found to have uncontrolled hypertension and type 2 diabetes mellitus. Multiple antihypertensives were adjusted. Safe discharge planning was discussed in detail with the patient and he verbalized understanding and wanted to transition to SNF. Patient would most likely benefit from long-term placement. Patient and patient's friend who is also the DPOA will try to arrange for long-term placement to SNF versus NURSING HOME as an outpatient. He has been discharged in hemodynamically stable condition with advised to have an event monitor within next 1 week for possibility of A-fib given multi vascular multi territory stroke. He is to check his blood pressure daily at home maintain a blood pressure diary. He is to check his fasting blood sugar daily at home maintain a fasting blood sugar diary. Follow-up with a primary care provider within next 2 weeks with a blood pressure and blood sugar diary for further adjustment of medications. Physical Exam 2 Narrative: General: No acute distress, AO x3, slurred speech HEENT: PERRLA, pupils bilaterally equal and reactive Chest: Normal vesicular breath sounds, no added sounds, equal good air entry bilaterally CVS: S1-S2 regular, no murmurs, no tachycardia, no gallops, no rubs Abdomen: Soft, nontender, no organomegaly, bowel sounds present Const: COMMON NORMALS: patient oriented x3 GENERAL APPEARANCE: cooperative and lethargic ORIENTATION/CONSCIOUSNESS: Yes confused and Yes lethargic Neuro: ABDOUL COMA SCALE: document GCS findings [place] coma scale eye opening: Spontaneous [place] coma scale verbal response: Orientated [place] coma scale motor response: Obey commands [place] coma scale total score: 15 COMMON NORMALS: patient oriented x3 and moves all extremities SENSORIUM/ORIENTATION: Yes lethargic COORDINATION/BALANCE: No bvdecf-ij-dyof test normal and No mbcs-lj-mkab test normal MOTOR EXAM: no asterixis, Motor fasciculations not present and Abnormal motor strength present (All 4 limbs 3/5) PLANTAR REFLEX: downgoing: bilateral COORDINATION: thnjks-rj-ifsd test abnormal and wgfn-eb-psws test abnormal Skin: NARRATIVE SKIN EXAM: Generalized plaque, scaly, erythematous LESIONS: lesion noted OTHER: Discharge Data Studies Completed and Pending Completed Studies During Hospitalization Category Date Time Status CT angio headneck* [id number] Stat Cat Scan 10/07/24 17:[address] head thrombolytic [id number] Stat Cat Scan 10/07/24 15:37 Completed CXRP [XR chest 1V portable [id number]] Stat Exams 10/07/24 16:03 Completed CV. echo complete* [id number] Routine Ultrasound 10/07/24 18:40 Completed Pending at discharge Category Date Time Status MAG [Magnesium] AM LABS Lab 10/12/24 04:00 Ordered MAG [Magnesium] AM LABS Lab 10/13/24 04:00 Ordered Myositis Specific 11 AB Panel Routine Lab 10/07/24 15:44 Received Urine Random Lytes Routine Lab 10/11/24 08:36 Uncollected Radiology Impressions Head CT 10/07/24 15:37 IMPRESSION: Age-indeterminate subcortical/deep white matter hypodensities within the superior left frontal lobe, which may represent subacute to chronic deep white matter infarcts. Brain MRI may be considered if there is suspicion for acute ischemia. ASSESSMENT: ASPECTS ([place] Stroke Program Early CT Score) is 10. ADDENDUM: 10/07/24 1610 COMMENT: THIS REPORT CONTAINS FINDINGS THAT MAY BE CRITICAL TO PATIENT CARE. The exam findings were verbally communicated by me to ALEYDA PAULA via telephone conference at 4:08 PM CDT on 10/07/2024. The findings were acknowledged and understood. Chest X-Ray 10/07/24 16:03 IMPRESSION: No acute findings. Head/Neck CTA 10/07/24 17:24 IMPRESSION: 1. No large vessel occlusion or flow-limiting arterial stenosis of the intracranial vasculature. 2. Nonspecific 5 mm calcified, enhancing structure arising from the posterior clivus with adjacent remodeling and lucency/erosion of the posterior clivus. This may possibly represent a small retro clival meningioma, although is not well assessed. Consider nonemergent contrast- enhanced MRI IAC protocol further characterization IMPRESSION: No stenosis or occlusion. REFERENCES: NASCET CRITERIA. The degree of stenosis in the cervical segment of the internal carotid artery is based on NASCET criteria. Normal is no stenosis. Mild is less than 50% stenosis. Moderate is 50-69% stenosis. Severe is 70% to 99% stenosis. Total occlusion is no detectable patent lumen. Laboratory Results WBC 7.38 10^3/uL (3.29-11.43) 10/10/24 05:28 RBC 4.72 10^6/uL (3.85-5.65) 10/10/24 05:28 Hgb 15.20 g/dL (11.27-16.99) 10/10/24 05:28 Hct 43.0 % (37-53) 10/10/24 05:28 MCV 91.1 fl (82-101) 10/10/24 05:28 MCH 32.2 pg (27-33) 10/10/24 05:28 MCHC 35.3 g/dL (30-55) 10/10/24 05:28 RDW 11.8 % (12.1-15.1) L 10/10/24 05:28 Plt Count 275 10^3/cmm (157-399) 10/10/24 05:28 MPV 9.6 fL (7.4-10.4) 10/10/24 05:28 Neut % (Auto) 55.0 % 10/10/24 05:28 Lymph % (Auto) 33.5 % 10/10/24 05:28 [place] % (Auto) 7.7 % 10/10/24 05:28 Eos % (Auto) 3.0 % 10/10/24 05:28 Baso % (Auto) 0.5 % 10/10/24 05:28 Neut # (Auto) 4.06 10^3/uL (1.8-7.7) 10/10/24 05:28 Lymph # (Auto) 2.5 10^3/uL (0.8-4.8) 10/10/24 05:28 [place] # (Auto) 0.6 10^3/uL (0.2-0.9) 10/10/24 05:28 Eos # (Auto) 0.2 10^3/uL (0.0-0.8) 10/10/24 05:28 Baso # (Auto) 0.0 10^3/uL (0.0-0.1) 10/10/24 05:28 Nucleated RBC % (auto) 0 % 10/10/24 05:28 Nucleated RBCs # 0.0 /100WBC 10/10/24 05:28 ESR 28 mm/hr (0-10) H 10/07/24 15:44 PT 11.50 SECONDS (12.1-14.9) L 10/07/24 15:44 INR 0.78 (0.8-1.2) L 10/07/24 15:44 APTT 24.2 SECONDS (23.9-36.7) 10/07/24 15:44 Specimen Type Arterial 10/07/24 17:05 Sample Site Brachial, right 10/07/24 17:05 ABG pH 7.44 (7.35-7.45) 10/07/24 17:05 ABG pCO2 32.8 mmHg (35-45) L 10/07/24 17:05 ABG pO2 93.2 mmHg (80.0-100.0) 10/07/24 17:05 ABG PO2/FiO2 Ratio 443 10/07/24 17:05 ABG HCO3 22.1 mmol/L (22-26) 10/07/24 17:05 ABG O2 Saturation 98.4 10/07/24 17:05 ABG Base Excess -1.1 mmol/L (-2.0-2.0) 10/07/24 17:05 Tobias Test N/a 10/07/24 17:05 A-a O2 Gradient 1.9 mmHg (5-10) L 10/07/24 17:05 Hematocrit 52.1 % (42-52) H 10/07/24 17:05 Hgb O2 Saturation 96.5 % (95-100) 10/07/24 17:05 Carboxyhemoglobin 0.9 %THgb (0.4-20.1) 10/07/24 17:05 Methemoglobin 1.0 % (0.4-1.5) 10/07/24 17:05 Total Hemoglobin 17.0 g/dL (14-18) 10/07/24 17:05 Sodium 136.0 mmol/L (131-143) 10/07/24 17:05 Potassium 2.9 mmol/L (3.5-5.0) L 10/07/24 17:05 Glucose 394.0 mg/dL (70-115) H 10/07/24 17:05 Ionized Calcium 1.2 mmol/L (1.1-1.4) 10/07/24 17:05 O2 Delivery Device Room air 10/07/24 17:05 FiO2 21.0 % 10/07/24 17:05 Parer ID Gd 10/07/24 17:05 Sodium 136 mmol/L (136-145) 10/11/24 05:05 Potassium 3.4 mmol/L (3.5-5.1) L 10/11/24 05:05 Chloride 100 mmol/L (98-107) 10/11/24 05:05 Carbon Dioxide 27 mmol/L (22-29) 10/11/24 05:05 Anion Gap 12.4 (5-19) 10/11/24 05:05 BUN 9 mg/dL (8-23) 10/11/24 05:05 Creatinine 0.6 mg/dL (0.7-1.2) L 10/11/24 05:05 GFR Calculation 136.1 mL/min (90-130) H 10/11/24 05:05 Glucose 167 mg/dL (65-115) H 10/11/24 05:05 POC Glucose 262 mg/dL (70-110) H 10/10/24 20:25 Estimat Average Glucose 266 10/07/24 15:44 Hemoglobin A1c 10.9 % (4.0-6.0) H 10/07/24 15:44 Calculated Osmolality 284 mOsm/kg (285-295) L 10/11/24 05:05 Lactic Acid 5.1 mmol/L (0.5-2.2) H* 10/07/24 15:44 Lactic Acid (Sepsis) 3.0 mmol/L (0.5-2.2) H 10/07/24 20:18 Calcium 8.7 mg/dL (8.5-10.5) 10/11/24 05:05 Phosphorus 3.8 mg/dL (2.5-4.5) 10/10/24 05:28 Magnesium 1.4 mg/dL (1.7-2.3) L 10/11/24 05:05 Iron 84 ug/dL (59-158) 10/07/24 15:44 TIBC 306 mcg/dl 10/07/24 15:44 % Saturation 27.4 % (20-50) 10/07/24 15:44 Unsat Iron Binding 222 ug/dL (112-347) 10/07/24 15:44 Total Bilirubin 0.3 mg/dL (0.15-1.2) 10/11/24 05:05 AST 14 U/L (0-40) 10/11/24 05:05 ALT 12 U/L (0-41) 10/11/24 05:05 Alkaline Phosphatase 58 U/L (40-130) 10/11/24 05:05 Lactate Dehydrogenase 228 U/L (135-225) H 10/07/24 15:44 Creatine Kinase 93 U/L (39-308) 10/07/24 15:44 C-Reactive Protein 4.3 mg/L (0.0-4.9) 10/07/24 15:44 Total Protein 5.8 g/dL (6.6-8.7) L 10/11/24 05:05 Albumin 3.0 g/dL (3.5-5.2) L 10/11/24 05:05 Globulin 2.8 g/dL (1.3-4.6) 10/11/24 05:05 Triglycerides 344 mg/dL (0-150) H 10/08/24 06:45 Cholesterol 325 mg/dL (0-200) H 10/08/24 06:45 LDL Cholesterol, Calc 204 mg/dL (50-129) H 10/08/24 06:45 HDL Cholesterol 52 mg/dL (60-100) L 10/08/24 06:45 LDL/HDL Ratio 3.92 RATIO (0.00-3.22) H 10/08/24 06:45 Cholesterol/HDL Ratio 6.25 mg/dL (1.0-5.00) H 10/08/24 06:45 Aldolase 4.8 U/L (< OR = 8.1) 10/07/24 15:44 Vitamin B12 743 pg/mL (232-1245) 10/07/24 15:44 Folate 11.8 ng/mL (4.5-32.2) 10/08/24 06:45 Procalcitonin 0.07 ng/mL (0-0.5) 10/08/24 06:45 TSH 1.29 uIU/mL (0.27-4.20) 10/07/24 15:44 Urine Color Yellow (Yellow) 10/07/24 16:08 Urine Appearance Clear (CLEAR) 10/07/24 16:08 Urine pH 5.5 (5-7) 10/07/24 16:08 Ur Specific [place] 1.033 (1.005-1.030) H 10/07/24 16:08 Urine Protein 3+ (Negative) A 10/07/24 16:08 Urine Glucose (UA) 3+ (Normal) H 10/07/24 16:08 Urine Ketones Negative (Negative) 10/07/24 16:08 Urine Blood 1+ (Negative) A 10/07/24 16:08 Urine Nitrate Negative (Negative) 10/07/24 16:08 Urine Bilirubin Negative (Negative) 10/07/24 16:08 Urine Urobilinogen 0.2 mg/dL (Negative) 10/07/24 16:08 Ur Leukocyte Esterase Negative (Negative) 10/07/24 16:08 Urine RBC 6-10 /hpf (0-2) 10/07/24 16:08 Urine WBC 11-20 /hpf (0-5) H 10/07/24 16:08 Ur Squamous Epith Cells 0-5 /hpf (0-5) 10/07/24 16:08 Amorphous Sediment Not Reportable 10/07/24 16:08 Urine Bacteria None seen /hpf (NONE) 10/07/24 16:08 Hyaline Casts 1.21 /lpf 10/07/24 16:08 Urine Opiates Screen Negative ng/mL (Negative) 10/07/24 16:08 Ur Barbiturates Screen Negative ng/mL (Negative) 10/07/24 16:08 Ur Phencyclidine Scrn Negative ng/mL (Negative) 10/07/24 16:08 Ur Amphetamines Screen Negative ng/mL (Negative) 10/07/24 16:08 U Benzodiazepines Scrn Negative ng/mL (Negative) 10/07/24 16:08 Urine Cocaine Screen Negative ng/mL (Negative) 10/07/24 16:08 U Marijuana (THC) Screen Negative ng/mL (Negative) 10/07/24 16:08 Serum Ketones Negative (Negative) 10/07/24 15:44 EDUARDO-1 Antibody <1.0 neg AI (<1.0 NEG) 10/08/24 06:45 SS-A/Ro IgG Antibody <1.0 neg AI (<1.0 NEG) 10/08/24 06:45 SS-B/La IgG Antibody <1.0 neg AI (<1.0 NEG) 10/08/24 06:45 Anti-nRNP/Sm IgG Ab <1.0 neg AI (<1.0 NEG) 10/08/24 06:45 Scl-70 Scleroderma Ab <1.0 neg AI (<1.0 NEG) 10/08/24 06:45 Anti-ds DNA IgG Ab <1 IU/mL 10/08/24 06:45 SARS-CoV-2 Ag (Rapid) Negative (Negative) 10/10/24 06:30 Vitals Last Vital Signs Temp 98.0 F 10/11/24 07:53 Pulse 71 10/11/24 07:53 Resp 17 10/11/24 07:53 BP 167/89 10/11/24 07:58 Pulse Ox 100 10/11/24 07:53 O2 Del Method Room Air 10/11/24 07:53 Discharge Plan Discharge Patient Disposition: Xfer SNF Condition: Stable Prescriptions: New isosorbide mononitrate 30 mg Tablet Extended Release 24 Hr 30 mg PO BID 30 Days Qty: 60 0RF potassium chloride [Klor-Con M20] 20 mEq Tablet,Er Particles/Crystals 40 meq PO DAILY Qty: 30 0RF magnesium oxide 400 mg (241.3 mg magnesium) Tablet 400 mg PO BID 30 Days Qty: 60 0RF hydralazine 50 mg Tablet 100 mg PO TID 30 Days Qty: 180 0RF aripiprazole 10 mg Tablet 5 mg PO DAILY Qty: 30 0RF clonidine HCl 0.3 mg tablet 0.3 mg PO TID Qty: 90 0RF insulin lispro [Humalog KwikPen Insulin] 100 unit/mL insulin pen 3 unit SUBCUT TID Qty: 15 0RF dapagliflozin propanediol [Farxiga] 10 mg tablet 10 mg PO DAILY Qty: 30 3RF Continued aspirin [Adult Low Dose Aspirin] 81 mg tablet,delayed release (DR/EC) 81 mg PO QDAY metformin 500 mg tablet 1,000 mg PO BID Rx Instructions: TAKE TWO TABLETS BY MOUTH TWICE DAILY atorvastatin 80 mg tablet 80 mg PO DAILY Rx Instructions: TAKE ONE TABLET BY MOUTH DAILY amlodipine 10 mg tablet 10 mg PO DAILY Rx Instructions: TAKE ONE TABLET BY MOUTH EVERY DAY omeprazole 20 mg capsule,delayed release(DR/EC) 20 mg PO BID Rx Instructions: TAKE ONE CAPSULE BY MOUTH TWICE DAILY irbesartan 300 mg tablet 300 mg PO DAILY Rx Instructions: TAKE ONE TABLET BY MOUTH EVERY DAY Changed insulin glargine [Lantus Solostar U-100 Insulin] 100 unit/mL (3 mL) insulin pen 30 unit SUBCUT BID 30 Days Qty: 45 3RF Discontinued glipizide 10 mg tablet extended release 24hr 10 mg PO BID Rx Instructions: TAKE ONE TABLET BY MOUTH TWICE DAILY metoprolol succinate 100 mg tablet extended release 24 hr 100 mg PO BID Rx Instructions: TAKE ONE TABLET BY MOUTH TWICE DAILY clonidine HCl 0.2 mg tablet 0.2 mg PO BID Rx Instructions: TAKE ONE TABLET BY MOUTH TWICE DAILY hydrochlorothiazide 12.5 mg capsule 12.5 mg PO QAM Rx Instructions: TAKE ONE CAPSULE BY MOUTH EVERY MORNING triamterene-hydrochlorothiazid 75-50 mg tablet 1 tab PO DAILY Discharge Orders: Discharge Order (Routine); Ordered 10/11/24 Ordered By: Jules Miller Other Ambulatory Orders: MCT/Event Monitor 21 Days (Routine) Timeframe: 1 Week Facility: [facility] - Location: Radiology Ordered By: Jules Miller Referrals: [facility] [Outside] Azam Mendoza DO [Primary Care Provider] - Discharge Diet: Cardiac and Diabetic Discharge Activity: Resume usual activity and Increase activity as tolerated Patient Instructions: Opioid Safety Activity Restrictions/Additional Instructions: Goal blood pressure between 100-1 40 systolic mmHg. Goal fasting blood sugar less than 120. Repeat BMP in 1 week. Discharge Attestations 2 Time Spent in Discharge Care*: greater than 30 min Specific Discharge Activities: educating patient, discussing with pcp/other providers, discussing with bilingual patient support caseworker/social workers/dc planners, documenting/other paperwork and evaluating patient/reviewing data Status at Discharge: Cognitive status at discharge: mildly impaired cognition , Behavioral status at discharge: cooperative , Functional status at discharge: independent ambulation , Overall status at discharge: patient has a new baseline Quality Metrics Clinical Quality Measures [ Cerebrovascular Accident { Contraindication to Antithrombotic: None; antithrombotic prescribed; Contraindication to Anticoagulation: Overlap treatment not indicated; Contraindication to Statin: None; Statin prescribed;}. No reported AMI, CVA or VTE this stay] Coding Level of Care Code 92253 Total time (in minutes) for Discharge: 70 Diagnoses Acute ischemic multifocal multiple vascular territories stroke I63.89 Generalized muscle weakness M62.81 Cerebrovascular accident I63.9 Uncontrolled blood glucose R73.09 Type 2 diabetes mellitus E11.9 Essential hypertension I10 Hypertension type: essential hypertension Slurred speech R47.81 Cognitive decline R41.89
[2024-10-11 10:22] LABS: Potassium, Radom Urine 23 mmol/L; Urine Random Chloride 66 mmol/L; Urine Random Sodium 78 mmol/L
[2024-10-11 10:52] LABS: Glucose Point of Care 208 mg/dL (70-110)
--- NOTE | 2024-10-11 10:56 | PC.NURSE ---
This nurse called report to ROSALIND Aguilar at [facility] at 1056am. They should be here around 1130am to get pt.
[2024-10-11 11:12] VITALS: BP 174/53; PULSE 89; RESP 16; TEMP 36.7; O2SAT 96
[2024-10-11 11:41] VITALS: BP 174/53; PULSE 89; O2SAT 93
--- NOTE | 2024-10-11 12:53 | PC.NURSE ---
charge nurse notified underwriter mortgage loan that dr would be ordering an event monitor for patient after the patient had already left the facility. underwriter mortgage loan called snf and they said no problem they would just call heart care and have them ship the monitor and place on patient.
[2024-10-14 15:30] LABS: Myositis EJ AB <11 SI (<11); Myositis JO-1 AB <11 SI (<11); Myositis MDA-5 AB <11 SI (<11); Myositis MI-2 Alpha AB <11 SI (<11); Myositis MI-2 Beta AB <11 SI (<11); Myositis NXP-2AB <11 SI (<11); Myositis OJ AB <11 SI (<11); Myositis PL-12 AB <11 SI (<11); Myositis PL-7 AB <11 SI (<11); Myositis SRP AB <11 SI (<11); Myositis TIF-1y AB <11 SI (<11)
== END 2024-10-11 11:43 | disposition skilled nursing facility (03) | DRG 65 ==
LOC: ER 16:41 → MEDSURG 19:14 → ER IP 10-08 06:31
PROVIDERS: Admitting Provider Student in an Organized Health Care Education/Training Program; Emergency Provider Emergency Medicine; PCP Family Medicine; Visit Provider Student in an Organized Health Care Education/Training Program
DX: I63.89 Other cerebral infarction (principal); I42.9 Cardiomyopathy, unspecified; R47.1 Dysarthria and anarthria; R13.10 Dysphagia, unspecified; R53.1 Weakness; R29.704 NIHSS score 4; I10 Essential (primary) hypertension; E11.65 Type 2 diabetes mellitus with hyperglycemia; Z79.84 Long term (current) use of oral hypoglycemic drugs; Z79.4 Long term (current) use of insulin; R41.89 Other symptoms and signs involving cognitive functions and awareness; E78.5 Hyperlipidemia, unspecified; K21.9 Gastro-esophageal reflux disease without esophagitis; L40.8 Other psoriasis; G47.30 Sleep apnea, unspecified; E83.42 Hypomagnesemia; E87.6 Hypokalemia; Z79.82 Long term (current) use of aspirin; Z91.81 History of falling
CPT/HCPCS: 36415; 36416; 36600; 70450; 70496; 70498; 71045; 80048; 80051; 80053; 80061; 80306; 81001; 82009; 82085; 82330; 82436; 82550; 82607; 82746; 82805; 82962; 83036; 83540; 83550; 83605; 83615; 83735; 84100; 84133; 84145; 84182; 84300; 84443; 85025; 85610; 85651; 85730; 86140; 86225; 86235; 87426; 92507; 92523; 92526; 92610; 93005; 93306; 94664; 96372; 96374; 97110; 97161; 97165; 99285; J1644; J1815; J2470; J3475; J7030; J9999

== ENCOUNTER 2024-10-19 08:49 | Emergency (ER) | payer MEDICARE, SELFPAY ==
[2024-10-19 08:50] VITALS: BP 138/69; PULSE 86; RESP 18; TEMP 37.4; O2SAT 93; BMI 27.8
--- NOTE | 2024-10-19 08:59 | XRR_ITS ---
PROCEDURE INFORMATION: Exam: XR Chest Exam date and time: 10/19/2024 9:06 AM Age: 63 years old Clinical indication: Other: Weakness TECHNIQUE: Imaging protocol: Radiologic exam of the chest. Views: 1 view. COMPARISON: CR XR chest 1V portable [id number] 10/07/2024 4:15 PM FINDINGS: Lungs: Unremarkable. No consolidation or mass. Pleural spaces: Unremarkable. No pleural effusion. No pneumothorax. Heart/Mediastinum: Unremarkable. No cardiomegaly. Bones/joints: Unremarkable. XR/XR chest 1V portable [id number] IMPRESSION: No acute findings.
--- NOTE | 2024-10-19 09:15 | ECG_ITS ---
[facility]24[facility]19 Pat Name: Mook Ruff Department: Room: Gender: Male Tray Delivery Aide: : 1960 Requested By: Dana Cantu Order Number: [id number] Reading MD: Measurements Intervals [place] Rate: 91 P: 82 WV: 151 QRS: 45 QRSD: 92 T: 66 QT: 352 QTc: 433 Interpretive Statements SINUS RHYTHM NONSPECIFIC T-WAVE ABNORMALITY [email or web address] [id number]
[2024-10-19 09:40] LABS: Basophils % 0.5 %; Eosinophils # 0.1 10^3/uL (0.0-0.8); Eosinophils % 1.6 %; Hematocrit 41.8 % (37-53); Lymphocytes # 0.6 10^3/uL (0.8-4.8); Mean Corpuscular HGB Conc 34.7 g/dL (30-55); Mean Corpuscular Hemoglobin 32.4 pg (27-33); Mean Corpuscular Volume 93.5 fl (82-101); Monocytes # 0.7 10^3/uL (0.2-0.9); Monocytes % 8.3 %; Neutrophils # 7.03 10^3/uL (1.8-7.7); Neutrophils % 82.4 %; Nucleated Red Blood Cells % 0 %; Platelet Count 260 10^3/cmm (157-399); Red Blood Count 4.47 10^6/uL (3.85-5.65); Red Cell Distribution Width 11.8 % (12.1-15.1); White Blood Count 8.54 10^3/uL (3.29-11.43)
--- NOTE | 2024-10-19 09:51 | ED_ITS ---
HPI - Weakness 2 General: Chief complaint: Weakness Stated complaint: ams Time Seen by Provider: 10/19/24 08:57 History of Present Illness: 63-year-old man with a history of recent stroke who was admitted to custodial afterwards who presents emergency room by ambulance today with an episode of weakness. He said he had a near syncopal episode. He said he became unresponsive but did not fall down. This was at breakfast. He says he still does not feel well. Nothing focal. He does have temp of 99 3. Review of Systems 2 Narrative: Constitutional symptoms: Negative except as documented in HPI. Skin symptoms: Negative except as documented in HPI. Eye symptoms: Negative except as documented in HPI. ENMT symptoms: Negative except as documented in HPI. Respiratory symptoms: Negative except as documented in HPI. Cardiovascular symptoms: Negative except as documented in HPI. Gastrointestinal symptoms: Negative except as documented in HPI. Genitourinary symptoms: Negative except as documented in HPI. Musculoskeletal symptoms: Negative except as documented in HPI. Neurologic symptoms: Negative except as documented in HPI. Psychiatric symptoms: Negative except as documented in HPI. Endocrine symptoms: Negative except as documented in HPI. PFSH ED 2 PFSH: Medical History (Updated 10/19/24 @ 10:26 by Dana Marrero MD) Attention-deficit hyperactivity disorder, predominantly inattentive type Alcohol dependence, in remission Bipolar disorder, in full remission, most recent episode mixed ADHD Raynauds disease Neuropathy Psoriatic arthritis DDD (degenerative disc disease) Sleep apnea GERD (gastroesophageal reflux disease) Hypertension Hyperlipidemia Diabetes Bipolar 1 disorder Schizophrenia Depression Surgical History H/O total knee replacement Family History Other Hypertension Denies family history of Diabetes Chronic kidney disease (CKD) Lung disease Cancer Stroke Social History Smoking and tobacco/nicotine status: never used tobacco/nicotine Alcohol intake: never Substance/Drug Use: never Adopted: No Lives independently: Yes Housing: Manufactured/Mobile home Marital status: Single Number of children: 0 Highest education level completed: 11th Grade service: No Current occupational status: retired Current gender identity: Male Physical Exam 2 Narrative: EXAM NARRATIVE: General: Alert, no acute distress. Skin: Warm, dry. Head: Normocephalic, atraumatic. Neck: Supple, trachea midline. Eye: Extraocular movements are intact. Ears, nose, mouth and throat: mucosa moist. Cardiovascular: Regular, Normal peripheral perfusion. Respiratory: Lungs are clear to auscultation, respirations are non-labored, breath sounds are equal, Symmetrical chest wall expansion. Gastrointestinal: Soft, Nontender, Non distended Musculoskeletal: Normal ROM, no deformity. Neurological: Alert and oriented, No focal neurological deficit observed. Slightly slurred speech which is apparently his baseline. Psychiatric: Cooperative, appropriate mood & affect. Course 2 Vital Signs: Vital signs: Vital Signs Temperature 99.3 F 10/19/24 08:50 Pulse Rate 86 10/19/24 08:50 Respiratory Rate 18 10/19/24 08:50 Blood Pressure 138/69 10/19/24 08:50 Pulse Oximetry 93 10/19/24 08:50 Oxygen Delivery Me thod Room Air 10/19/24 08:50 MDM - Weakness Medical Decision Making Medical decision making: Differential diagnosis for patient presenting with generalized weakness including but not limited to and based on the above HPI, review of systems and physical exam: Sepsis. Dehydration. Renal failure. Electrolyte abnormalities. Anemia. Congestive heart failure. Hypotension. Coronary syndrome. Hepatitis. Cirrhosis. Infections such as pneumonia, urinary tract infection, [place] illness, Cellulitis, Viral infections including influenza and Covid-19. Workup: labwork and lab/exam driven imaging ordered to evaluate, rule in and rule out above pathologies. EKG: Time 9:15 AM. Normal sinus rhythm, No ST-T changes, no ectopy, normal CT & QRS intervals, This was reviewed and interpreted by myself the ER physician at 9:20 AM. Chest x-ray: No acute process. No infiltrate. No pneumothorax. This was reviewed and interpreted by myself the emergency room physician. I also reviewed the radiology report. Lab Review: Laboratory results were reviewed and interpreted by myself the emergency room physician. No leukocytosis. No anemia. No renal failure. Urinalysis negative. Influenza is positive which is explain his symptoms and the reported fever. Repeat EKG: Time 1037. Rate 87. Normal sinus rhythm, No ST-T changes, no ectopy, normal CT & QRS intervals, This was reviewed and interpreted by myself the ER physician at 10:40 AM. No change of significance from EKG done previously today. I reviewed the patient's medical record. Reexamination: Patient remained stable. No increased work of breathing. No altered mental status. No focal motor deficits. Assessment and plan: Influenza A - Discharged home - Discussed plan with patient. Answered any questions. - Evaluation and treatment of this problem were appropriate in the emergency setting. Lab Data 10/19/24 09:13 10/19/24 09:13 Radiology Impressions Chest X-Ray 10/19/24 08:59 IMPRESSION: No acute findings. Laboratory Results WBC 8.54 10^3/uL (3.29-11.43) 10/19/24 09:13 RBC 4.47 10^6/uL (3.85-5.65) 10/19/24 09:13 Hgb 14.50 g/dL (11.27-16.99) 10/19/24 09:13 Hct 41.8 % (37-53) 10/19/24 09:13 MCV 93.5 fl (82-101) 10/19/24 09:13 MCH 32.4 pg (27-33) 10/19/24 09:13 MCHC 34.7 g/dL (30-55) 10/19/24 09:13 RDW 11.8 % (12.1-15.1) L 10/19/24 09:13 Plt Count 260 10^3/cmm (157-399) 10/19/24 09:13 MPV 9.0 fL (7.4-10.4) 10/19/24 09:13 Neut % (Auto) 82.4 % 10/19/24 09:13 Lymph % (Auto) 7.0 % 10/19/24 09:13 [place] % (Auto) 8.3 % 10/19/24 09:13 Eos % (Auto) 1.6 % 10/19/24 09:13 Baso % (Auto) 0.5 % 10/19/24 09:13 Neut # (Auto) 7.03 10^3/uL (1.8-7.7) 10/19/24 09:13 Lymph # (Auto) 0.6 10^3/uL (0.8-4.8) L 10/19/24 09:13 [place] # (Auto) 0.7 10^3/uL (0.2-0.9) 10/19/24 09:13 Eos # (Auto) 0.1 10^3/uL (0.0-0.8) 10/19/24 09:13 Baso # (Auto) 0.0 10^3/uL (0.0-0.1) 10/19/24 09:13 Nucleated RBC % (auto) 0 % 10/19/24 09:13 Nucleated RBCs # 0.0 /100WBC 10/19/24 09:13 Sodium 136 mmol/L (136-145) 10/19/24 09:13 Potassium 3.9 mmol/L (3.5-5.1) 10/19/24 09:13 Chloride 97 mmol/L (98-107) L 10/19/24 09:13 Carbon Dioxide 25 mmol/L (22-29) 10/19/24 09:13 Anion Gap 17.9 (5-19) 10/19/24 09:13 BUN 11 mg/dL (8-23) 10/19/24 09:13 Creatinine 1.0 mg/dL (0.7-1.2) 10/19/24 09:13 GFR Calculation 75.5 mL/min (90-130) L 10/19/24 09:13 Glucose 110 mg/dL (65-115) 10/19/24 09:13 Calculated Osmolality 282 mOsm/kg (285-295) L 10/19/24 09:13 Lactic Acid 1.1 mmol/L (0.5-2.2) 10/19/24 09:13 Calcium 9.1 mg/dL (8.5-10.5) 10/19/24 09:13 Total Bilirubin 0.4 mg/dL (0.15-1.2) 10/19/24 09:13 AST 16 U/L (0-40) 10/19/24 09:13 ALT 16 U/L (0-41) 10/19/24 09:13 Alkaline Phosphatase 65 U/L (40-130) 10/19/24 09:13 Troponin T Baseline 27 ng/L (0-15) H 10/19/24 09:13 Total Protein 6.4 g/dL (6.6-8.7) L 10/19/24 09:13 Albumin 3.9 g/dL (3.5-5.2) 10/19/24 09:13 Globulin 2.5 g/dL (1.3-4.6) 10/19/24 09:13 Urine Color Yellow (Yellow) 10/19/24 10: Urine Appearance Clear (CLEAR) 10/19/24 10:29 Urine pH 7 (5-7) 10/19/24 10:29 Ur Specific [place] 1.010 (1.005-1.030) 10/19/24 10:29 Urine Protein 3+ (Negative) A 10/19/24 10: Urine Glucose (UA) 4+ (Normal) H 10/19/24 10: Urine Ketones Negative (Negative) 10/19/24 10: Urine Blood Neg (Negative) 10/19/24 10: Urine Nitrate Negative (Negative) 10/19/24 10: Urine Bilirubin Neg (Negative) 10/19/24 10: Urine Urobilinogen Neg mg/dL (Negative) 10/19/24 10:29 Ur Leukocyte Esterase Negative (Negative) 10/19/24 10:29 Urine RBC 3-5 /hpf (0-2) 10/19/24 10:29 Urine WBC 0-5 /hpf (0-5) 10/19/24 10:29 Ur Squamous Epith Cells 0-5 /hpf (0-5) 10/19/24 10:29 Amorphous Sediment Not Reportable 10/19/24 10:29 Urine Bacteria Trace /hpf (NONE) 10/19/24 10:29 Hyaline Casts 1.21 /lpf 10/19/24 10:29 Urine Mucus Trace /hpf 10/19/24 10:29 Influenza A (PCR) Positive (Negative) 10/19/24 09:10 Influenza Type B (PCR) Negative (Negative) 10/19/24 09:10 RSV (PCR) Negative (Negative) 10/19/24 09:10 SARS-CoV-2 (PCR) Negative (Negative) 10/19/24 09:10 All radiology interpretation(s) finalized by discharge Discharge Plan Discharge Patient Disposition: Home Clinical Impression: Influenza A Condition: Stable Prescriptions: No Action aspirin [Adult Low Dose Aspirin] 81 mg tablet,delayed release (DR/EC) 81 mg PO QDAY metformin 500 mg tablet 1,000 mg PO BID atorvastatin 80 mg tablet 80 mg PO DAILY amlodipine 10 mg tablet 10 mg PO DAILY omeprazole 20 mg capsule,delayed release(DR/EC) 20 mg PO QAM irbesartan 300 mg tablet 300 mg PO DAILY potassium chloride [Klor-Con M20] 20 mEq Tablet,Er Particles/Crystals 40 meq PO DAILY Qty: 30 0RF hydralazine 50 mg Tablet 100 mg PO TID 30 Days Qty: 180 0RF insulin lispro [Humalog KwikPen Insulin] 100 unit/mL insulin pen 3 unit SUBCUT TID Qty: 15 0RF dapagliflozin propanediol [Farxiga] 10 mg tablet 10 mg PO DAILY Qty: 30 3RF insulin glargine [Lantus Solostar U-100 Insulin] 100 unit/mL (3 mL) insulin pen 30 unit SUBCUT BID 30 Days Qty: 45 3RF clonidine HCl 0.1 mg tablet 0.1 mg PO BID acetaminophen 325 mg Tablet 650 mg PO Q6H PRN (Reason: Mild Pain (Scale Score 1-4)) ondansetron HCl [Zofran] 4 mg Tablet 4 mg PO Q4H PRN (Reason: Nausea And Vomiting) magnesium hydroxide [Milk of Magnesia] 400 mg/5 mL Suspension 30 ml PO DAILY PRN (Reason: Constipation) polyethylene glycol 3350 [Miralax] 17 gram/dose Powder 17 g PO BID aripiprazole 5 mg tablet 5 mg PO DAILY isosorbide mononitrate 30 mg tablet extended release 24 hr 30 mg PO DAILY magnesium oxide 400 mg (241.3 mg magnesium) tablet 400 mg PO DAILY Discharge Orders: Discharge ED (Routine); Ordered 10/19/24 Ordered By: Dana Marrero Referrals: Azam Mendoza DO [Primary Care Provider] - Discharge Diet: Usual diet Discharge Activity: Increase activity as tolerated Patient Instructions: Influenza (ED), Opioid Safety, Pain Management Activity Restrictions/Additional Instructions: Thank you for choosing [facility] for your healthcare needs today. Please realize this is an emergency room and that we are providing you with a medical screening exam and this may not be complete and all inclusive of all the testing and or work up that you may need to determine your ailment or severity of your illness. You have been screened and evaluated and felt safe for discharge. Health conditions do change or evolve sometimes and as such it is important that you follow up with your Primary Doctor to be re checked, 3-5 days is a general good time frame for follow up. 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 for Chg Fwd Related Data Home Medications ?Medication ?Instructions ?Recorded ?Confirmed aspirin 81 mg tablet,delayed 81 mg PO QDAY 08/14/19 release (Adult Low Dose Aspirin) amlodipine 10 mg tablet 10 mg PO DAILY 10/07/2409/22 atorvastatin 80 mg tablet 80 mg PO DAILY 10/07/2409/22 irbesartan 300 mg tablet 300 mg PO DAILY 10/07/24 metformin 500 mg tablet 1,000 mg PO BID 10/07/24 omeprazole 20 mg capsule,delayed 20 mg PO QAM 10/07/24 10/19/24 release acetaminophen 325 mg tablet 650 mg PO Q6H PRN Mild Chasidy n (Scale 10/19/24 10/19/24 Score 1-4) aripiprazole 5 mg tablet 5 mg PO DAILY 10/19/2410/19 clonidine HCl 0.1 mg tablet 0.1 mg PO BID 10/19/24 isosorbide mononitrate 30 mg 30 mg PO DAILY 10/19/24 0 10/19/24 tablet,extended release 24 hr magnesium hydroxide 400 mg/5 mL 30 ml PO DAILY PRN Con stipation 10/19/24 10/19/24 oral suspension (Milk of Magnesia) magnesium oxide 400 mg (241.3 mg 400 mg PO DAILY 10/1910/19/24 magnesium) tablet ondansetron HCl 4 mg tablet 4 mg PO Q4H PRN Nausea And Vomiting 10/19/24 10/19/24 polyethylene glycol 3350 17 17 g PO BID 10/19/2410/19 gram/dose oral powder (Miralax) Previous Rx's ?Medication ?Instructions ?Recorded dapagliflozin propanediol 10 mg 10 mg PO DAILY #30 tab s 10/11/24 tablet (Farxiga) hydralazine 50 mg tablet 100 mg (2 x 50 mg) PO TID 30 days 10/11/24 #180 tabs insulin glargine 100 unit/mL (3 30 unit (0.3 mL) SUBCU T BID 30 10/11/24 mL) subcutaneous pen (Lantus days #45 mL Solostar U-100 Insulin) insulin lispro 100 unit/mL 3 unit (0.03 mL) SUBCUT TID #15 mL 10/11/24 subcutaneous pen (Humalog KwikPen (U-100) Insulin) potassium chloride 20 mEq 40 meq (2 x 20 mEq) PO DAILY #30 10/11/24 tablet,extended tabs release(part/cryst) (Everton Moore) Allergies Allergy/AdvReac Type Severity Reaction Status Date / Time lisinopril Allergy cough Verified 10/07/24 15:46
[2024-10-19 09:57] LABS: Troponin(5th) Baseline 27 ng/L (0-15)
[2024-10-19 10:00] LABS: Alanine Aminotransferase 16 U/L (0-41); Albumin Level 3.9 g/dL (3.5-5.2); Alkaline Phosphatase 65 U/L (40-130); Anion Gap 17.9 (5-19); Aspartate Amino Transferase 16 U/L (0-40); Blood Urea Nitrogen 11 mg/dL (8-23); Calcium 9.1 mg/dL (8.5-10.5); Carbon Dioxide 25 mmol/L (22-29); Chloride 97 mmol/L (98-107); Globulin 2.5 g/dL (1.3-4.6); Glomerular Filtration Rate 75.5 mL/min (90-130); Glucose 110 mg/dL (65-115); Osmolality Calculated 282 mOsm/kg (285-295); Potassium 3.9 mmol/L (3.5-5.1); Sodium 136 mmol/L (136-145); Total Bilirubin 0.4 mg/dL (0.15-1.2); Total Protein 6.4 g/dL (6.6-8.7)
[2024-10-19 10:01] LABS: Lactic Sepsis W/Reflex 1.1 mmol/L (0.5-2.2)
--- NOTE | 2024-10-19 10:02 | PC.PHAR ---
Pt is a resident at [facility]
[2024-10-19 10:17] LABS: Influenza A POSITIVE (Negative); Influenza B NEGATIVE (Negative); Respiratory Syncytial Virus Ce NEGATIVE (Negative); SARS-CoV-2 PCR NEGATIVE (Negative)
[2024-10-19 10:34] LABS: Hyaline Casts Urine 1.21 /lpf; Squamous Epithelial Cell Urine 0-5 /hpf (0-5); WBC Urine 0-5 /hpf (0-5)
[2024-10-19 10:45] LABS: Urine Appearance Clear (CLEAR); Urine Color Yellow (Yellow)
[2024-10-19 10:46] LABS: Bacteria Urine TRACE /hpf; Bilirubin Urine Neg (Negative); Blood Urine Neg (Negative); Glucose Urine UA 4+ (Normal); Ketones Urine Negative (Negative); Leukocyte Esterase Urine Negative (Negative); Mucus Urine TRACE /hpf; Nitrate Urine Negative (Negative); Protein Urine 3+ (Negative); UA Slide Review UA Slide Review Perf; Urobilinogen Urine Neg (Negative); pH Urine 7 (5-7)
--- NOTE | 2024-10-19 11:00 | ECG_ITS ---
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
[2024-10-19 11:14] VITALS: BP 117/61; PULSE 89; O2SAT 95
[2024-10-19 11:20] LABS: Troponin 5 2HR 22.19 ng/L (0-15)
[2024-10-19 11:21] LABS: Troponin 5 2HR Delta -4.81 ABS# (0-10)
--- NOTE | 2024-10-19 13:30 | PC.NURSE ---
THIS RN ATTEMPTED TO GO AND BACK CHART PTS VITALS FROM HIS STAY, EMS HAD PUT A NEW PT IN THE ROOM AFTER THIS PT HAD BEEN DC. EMS D/C PT ON VITALS MONITOR AND A RESULT, ALL PTS VITALS WERE LOST.
== END 2024-10-19 13:00 | disposition home or self-care (01) ==
PROVIDERS: Emergency Provider Emergency Medicine; PCP Family Medicine
DX: J10.1 Influenza due to other identified influenza virus with other respiratory manifestations (principal); Z11.52 Encounter for screening for COVID-19; Z79.84 Long term (current) use of oral hypoglycemic drugs; Z79.4 Long term (current) use of insulin; Z79.82 Long term (current) use of aspirin; E78.5 Hyperlipidemia, unspecified; I10 Essential (primary) hypertension; E11.9 Type 2 diabetes mellitus without complications
CPT/HCPCS: 36415; 71045; 80053; 81001; 83605; 84484; 85025; 87040; 87637; 93005; 99285

== ENCOUNTER 2025-02-25 09:59 | Emergency (ER) | payer MEDICARE, MEDICAID, SELFPAY ==
[2025-02-25 10:00] VITALS: BP 178/82; PULSE 100; RESP 16; TEMP 36.8; O2SAT 98; BMI 29.8
--- NOTE | 2025-02-25 10:00 | XR_ITS ---
WS: [email or web address] XR chest 1V portable [id number] REASON FOR EXAM: dyspnea/cough FINDINGS: The chest is unchanged compared to 09/29/2024. Calcification in the aortic arch. Mild tortuosity of the thoracic aorta. Heart size is within normal limits. Calcified granulomatous disease bilaterally. No acute pulmonary parenchymal or pleural abnormality. Mild degenerative spondylosis in the thoracic spine. XR/XR chest 1V portable [id number] IMPRESSION: Stable chest without acute abnormality.
--- NOTE | 2025-02-25 10:06 | CT_ITS ---
WS: [email or web address] CT CERVICAL SPINE HISTORY: Trauma TECHNIQUE: Contiguous 2.0 mm axial imaging performed through the entire cervical spine. Sagittal and coronal reformats also performed. All CT scans at [facility] use at least one of these dose optimization techniques: automated exposure control; mA and/or kV adjustment per patient size (includes targeted exams where dose is matched to clinical indication); or iterative reconstruction. DLP: 1381.21 mGy.cm COMPARISON: None available. Straightening of the normal cervical lordosis. Disc spaces are narrowed. Hypertrophic osteophytes from C3-T1. Craniocervical junction is normally aligned. No facet joint subluxation or displacement. Lateral masses are aligned. The odontoid is intact. C2-C3: Small central disc protrusion. Mild osteophytic ridging. C3-C4: Osteophytic ridging with facet joint arthritis. Small LEFT paracentral disc protrusion. Mild central with moderate foraminal stenosis. C4-C5: Moderate osteophytic ridging and mild facet arthritis. Moderate central with severe bilateral foraminal stenosis, RIGHT greater than LEFT. C5-C6: Diffuse osteophytic ridging and facet arthritis. Severe bilateral foraminal stenosis. C6-C7: Marked hypertrophic osteophytic ridging with facet arthritis. Severe central and bilateral foraminal stenosis. C7-T1: Osteophytic ridging. Mild foraminal stenosis. Calcified plaque LEFT carotid bifurcation. Lung apices are clear. CT/CT cervical spin wo con* [id number] IMPRESSION: 1. No acute cervical spine fracture. 2. Advanced facet joint arthritis with hypertrophic vertebral body osteophytes . 3. Multilevel areas of central and foraminal stenosis, most significant at C5- 6 and C6-7.
--- NOTE | 2025-02-25 10:07 | CT_ITS ---
WS: [email or web address] CT HEAD NONCONTRAST HISTORY: Trauma TECHNIQUE: Contiguous axial imaging performed through the brain. Bone and soft tissue windows. Sagittal and coronal reformats reviewed. All CT scans at [facility] use at least one of these dose optimization techniques: automated exposure control; mA and/or kV adjustment per patient size (includes targeted exams where dose is matched to clinical indication); or iterative reconstruction. DLP: 1381.21 mGy.cm COMPARISON: 10/07/2024 No acute intracranial hemorrhage, midline shift or mass effect. Mild cerebral and cerebellar atrophy with mild small vessel changes. Remote lacunar infarcts in the LEFT santiago radiata is new since 10/07/2024. Ventricles: Normal size with no hydrocephalus. Paranasal sinuses: As visualized are clear. Mastoid air cells: Well pneumatized. Calvarium and scalp: Hyperostosis frontalis interna. Large acute soft tissue hematoma centered over the LEFT orbit and globe. No visualized fracture. No post septal hematoma. Nasal bones as visualized are intact. No air-fluid levels in the sinuses. CT/CT head wo con* [id number] IMPRESSION: 1. No acute intracranial hemorrhage or edema. 2. Remote small lacunar infarcts in the LEFT santiago radiata. 3. Large acute soft tissue hematoma centered over the LEFT orbit and globe. No underlying fracture identified of the included bones.
--- NOTE | 2025-02-25 10:08 | XR_ITS ---
WS: [email or web address] XR hand RT min 3V* [id number] REASON FOR EXAM: Trauma FINDINGS: No fracture or dislocation. Mild to moderate osteoarthritis in the 3 joints of the thumb and the DIP joints of the fingers. Minimal osteoarthritis in the second and third MCP joints. No radiopaque soft tissue foreign body. XR/XR hand RT min 3V* [id number] IMPRESSION: No acute bone or joint abnormality.
--- NOTE | 2025-02-25 10:08 | XR_ITS ---
WS: [email or web address] XR knee RT 3V* [id number] REASON FOR EXAM: Trauma FINDINGS: Remote old healed fracture of the proximal tibia with screw fixation. No acute fracture identified. Patella and tibial plateaus are intact. Mild to moderate osteoarthritis with meniscal calcification. No radiopaque soft tissue foreign body. XR/XR knee RT 3V* [id number] IMPRESSION: No acute bone or joint abnormality.
--- NOTE | 2025-02-25 10:09 | ED_ITS ---
HPI - Fall 2 General: Chief Complaint: Fall Stated Complaint: FALL Time Seen by Provider: 02/25/25 10:00 History of Present Illness: 64-year-old male lives at [facility] and notable walks morning stumbled and fell has a large hematoma above the left eye. He has some scrapes and abrasions on the right hand and right knee. He does not recall how he got back to [facility] after he fell he is not on any anticoagulants he is diabetic. He is awake and alert at this time. He has large amount of swelling above left eye but has no vision changes. He denies any other injuries denies any neck or back pain. He is unsure of his last tetanus Associated symptoms-after fall: Denies abdominal pain, chest pain or neck pain Related Data Home Medications ?Medication ?Instructions ?Recorded ?Confirmed aspirin 81 mg tablet,delayed 81 mg PO QDAY 08/14/19 release (Adult Low Dose Aspirin) amlodipine 10 mg tablet 10 mg PO DAILY 10/07/24 08/12/15 atorvastatin 80 mg tablet 80 mg PO BEDTIME 10/07/24 irbesartan 300 mg tablet 300 mg PO DAILY 10/07/2412/15 metformin 500 mg tablet 1,000 mg PO BID 10/07/2412/15 omeprazole 20 mg capsule,delayed 20 mg PO QAM 10/07/24 02/25/25 release acetaminophen 325 mg tablet 650 mg PO Q6H PRN Mild Chasidy n (Scale 10/19/24 02/25/25 Score 1-4) aripiprazole 5 mg tablet 5 mg PO DAILY 10/19/2402/25 isosorbide mononitrate 30 mg 30 mg PO DAILY 10/19/24 0 02/25/25 tablet,extended release 24 hr magnesium oxide 400 mg (241.3 mg 400 mg PO DAILY 10/1902/25/25 magnesium) tablet ondansetron HCl 4 mg tablet 4 mg PO Q4H PRN Nausea And Vomiting 10/19/24 02/25/25 polyethylene glycol 3350 17 17 g PO BID 10/19/2402/25 gram/dose oral powder (Miralax) hydralazine 100 mg tablet 100 mg PO TID 02/25/2502/25 insulin glargine-yfgn 100 unit/mL 30 unit SUBCUT BID 0 02/25/25 02/25/25 (3 mL) subcutaneous pen Previous Rx's ?Medication ?Instructions ?Recorded dapagliflozin propanediol 10 mg 10 mg PO DAILY #30 tab s 10/11/24 tablet (Farxiga) insulin lispro 100 unit/mL 3 unit (0.03 mL) SUBCUT TID #15 mL 10/11/24 subcutaneous pen (Humalog KwikPen (U-100) Insulin) potassium chloride 20 mEq 40 meq (2 x 20 mEq) PO DAILY #30 10/11/24 tablet,extended tabs release(part/cryst) (Klor-Con M) blood-glucose meter (Contour Plus #1 ea 02/10/25 Blue Meter) contour blue test strips #100 ea 02/10/25 Allergies Allergy/AdvReac Type Severity Reaction Status Date / Time lisinopril Allergy cough Verified 02/25/25 10:08 Review of Systems 2 Const: Denies: fever(s) or chills Card: Denies: chest pain Resp: Denies: dyspnea GI: Denies: abdominal pain : Denies: dysuria, urinary frequency or urinary urgency Musc: Denies: neck pain or back pain Skin/Breast: Denies: rash PFSH ED 2 PFSH: Medical History Attention-deficit hyperactivity disorder, predominantly inattentive type Alcohol dependence, in remission Bipolar disorder, in full remission, most recent episode mixed ADHD Raynauds disease Neuropathy Psoriatic arthritis DDD (degenerative disc disease) Sleep apnea GERD (gastroesophageal reflux disease) Hypertension Hyperlipidemia Diabetes Bipolar 1 disorder Schizophrenia Depression Surgical History H/O total knee replacement Family History Other Hypertension Denies family history of Diabetes Chronic kidney disease (CKD) Lung disease Cancer Stroke Social History Smoking and tobacco/nicotine status: never used tobacco/nicotine Alcohol intake: never Substance/Drug Use: never Adopted: No Lives independently: Yes Housing: Manufactured/Mobile home Marital status: Single Number of children: 0 Highest education level completed: 11th Grade service: No Current occupational status: retired Current gender identity: Male Physical Exam 2 Const: COMMON NORMALS: no acute distress GENERAL APPEARANCE: cooperative and comfortable ORIENTATION/CONSCIOUSNESS: Yes awake, Yes oriented to person, Yes oriented to place and Yes oriented to time HENMT: COMMON NORMALS: normocephalic and hearing grossly normal bilaterally HEAD & SCALP: normocephalic OTHER: Hematoma left supraorbital ridge no active bleeding. Was an abrasion there but no full-thickness laceration. Patient has normal visual acuity can count fingers at 20 to 24 inches without difficulty. Resp: COMMON NORMALS: normal respiratory effort, No retractions, No use of accessory muscles and clear to auscultation bilaterally AUSCULTATION: clear to auscultation bilaterally Cardio: COMMON NORMALS: regular rate, regular rhythm and No murmurs present (Cardio) RATE: regular rate RHYTHM: regular rhythm GI: COMMON NORMALS: Soft to palpation and No hepatosplenomegaly present A USCULTATION: Yes normoactive bowel sounds PALPATION: Yes Soft to palpation, No Tenderness to palpation present (GI), No Guarding due to palpation present (GI) and Yes No hepatosplenomegaly present Extremity: COMMON NORMALS: normal to inspection, capillary refill normal, no clubbing, cyanosis or edema, no calf tenderness and no pedal edema Neuro: SENSORIUM/ORIENTATION: Yes oriented to person, Yes oriented to place and Yes oriented to time OTHER: No facial asymmetry yarn packer strength equal bilaterally normal strength and movement in all extremities no focal neurologic deficits Skin: COMMON NORMALS: no rashes or lesions noted GENERAL SKIN EXAM: no rashes or lesions noted Course 2 Vital Signs: Vital signs: Vital Signs Temperature 98.2 F 02/25/25 10:00 Pulse Rate 88 02/25/25 11:44 Respiratory Rate 16 02/25/25 11:44 Blood Pressure 143/79 02/25/25 11:44 Pulse Oximetry 97 02/25/25 11:44 MDM - Fall Medical Decision Making Ground-level mechanical fall with supraorbital ridge hematoma. No active bleeding nothing is amenable to suturing at this time he does have abrasions on the back of his right hand and on his knee x-rays of these areas did not show any acute fractures CT head negative CT cervical spine negative. Will discharge patient home with no change in medications. Ice to the hematoma. Discussed numbness will likely shift because persistent swelling in his thigh and shift the lower eyelid as well. Patient expressed understanding he is otherwise awake and ambulatory follow-up with primary care Medical Records I reviewed the patient's medical records. Lab Data I reviewed the patient's lab results. 02/25/25 10:18 02/25/25 10:18 Radiology Impressions Chest X-Ray 02/25/25 10:00 IMPRESSION: Stable chest without acute abnormality. Cervical Spine CT 02/25/25 10:06 IMPRESSION: 1. No acute cervical spine fracture. 2. Advanced facet joint arthritis with hypertrophic vertebral body osteophytes. 3. Multilevel areas of central and foraminal stenosis, most significant at C5-6 and C6-7. Head CT 02/25/25 10:07 IMPRESSION: 1. No acute intracranial hemorrhage or edema. 2. Remote small lacunar infarcts in the LEFT santiago radiata. 3. Large acute soft tissue hematoma centered over the LEFT orbit and globe. No underlying fracture identified of the included bones. Hand X-Ray 02/25/25 10:08 IMPRESSION: No acute bone or joint abnormality. Knee X-Ray 02/25/25 10:08 IMPRESSION: No acute bone or joint abnormality. Laboratory Results WBC 11.10 10^3/uL (3.29-11.43) 02/25/25 10:18 RBC 5.10 10^6/uL (3.85-5.65) 02/25/25 10:18 Hgb 15.20 g/dL (11.27-16.99) 02/25/25 10:18 Hct 44.1 % (37-53) 02/25/25 10:18 MCV 86.5 fl (82-101) 02/25/25 10:18 MCH 29.8 pg (27-33) 02/25/25 10:18 MCHC 34.5 g/dL (30-55) 02/25/25 10:18 RDW 12.5 % (12.1-15.1) 02/25/25 10:18 Plt Count 281 10^3/cmm (157-399) 02/25/25 10:18 MPV 9.2 fL (7.4-10.4) 02/25/25 10:18 Neut % (Auto) 80.1 % 02/25/25 10:18 Lymph % (Auto) 11.4 % 02/25/25 10:18 Hughes % (Auto) 5.5 % 02/25/25 10:18 Eos % (Auto) 2.3 % 02/25/25 10:18 Baso % (Auto) 0.5 % 02/25/25 10:18 Neut # (Auto) 8.89 10^3/uL (1.8-7.7) H 02/25/25 10:18 Lymph # (Auto) 1.3 10^3/uL (0.8-4.8) 02/25/25 10:18 Hughes # (Auto) 0.6 10^3/uL (0.2-0.9) 02/25/25 10:18 Eos # (Auto) 0.3 10^3/uL (0.0-0.8) 02/25/25 10:18 Baso # (Auto) 0.1 10^3/uL (0.0-0.1) 02/25/25 10:18 Nucleated RBC % (auto) 0 % 02/25/25 10:18 Nucleated RBCs # 0.0 /100WBC 02/25/25 10:18 Sodium 141 mmol/L (136-145) 02/25/25 10:18 Potassium 4.1 mmol/L (3.5-5.1) 02/25/25 10:18 Chloride 102 mmol/L (98-107) 02/25/25 10:18 Carbon Dioxide 27 mmol/L (22-29) 02/25/25 10:18 Anion Gap 16.1 (5-19) 02/25/25 10:18 BUN 10 mg/dL (8-23) 02/25/25 10:18 Creatinine 0.8 mg/dL (0.7-1.2) 02/25/25 10:18 GFR Calculation 97.3 mL/min (90-130) 02/25/25 10:18 Glucose 207 mg/dL (65-115) H 02/25/25 10:18 Calculated Osmolality 297 mOsm/kg (285-295) H 02/25/25 10:18 Calcium 9.4 mg/dL (8.5-10.5) 02/25/25 10:18 Total Bilirubin 0.4 mg/dL (0.15-1.2) 02/25/25 10:18 AST 18 U/L (0-40) 02/25/25 10:18 ALT 17 U/L (0-41) 02/25/25 10:18 Alkaline Phosphatase 71 U/L (40-130) 02/25/25 10:18 Total Protein 7.3 g/dL (6.6-8.7) 02/25/25 10:18 Albumin 4.2 g/dL (3.5-5.2) 02/25/25 10:18 Globulin 3.1 g/dL (1.3-4.6) 02/25/25 10:18 Urine Color Yellow (Yellow) 02/25/25 10:41 Urine Appearance Clear (CLEAR) 02/25/25 10:41 Urine pH 5.5 (5-7) 02/25/25 10:41 Ur Specific Nelson 1.014 (1.005-1.030) 02/25/25 10:41 Urine Protein 2+ (Negative) A 02/25/25 10:41 Urine Glucose (UA) 3+ (Normal) H 02/25/25 10:41 Urine Ketones Negative (Negative) 02/25/25 10:41 Urine Blood Negative (Negative) 02/25/25 10:41 Urine Nitrate Negative (Negative) 02/25/25 10:41 Urine Bilirubin Negative (Negative) 02/25/25 10:41 Urine Urobilinogen 0.2 mg/dL (Negative) 02/25/25 10:41 Ur Leukocyte Esterase Negative (Negative) 02/25/25 10:41 Urine RBC 0-2 /hpf (0-2) 02/25/25 10:41 Urine WBC 0-5 /hpf (0-5) 02/25/25 10:41 Ur Squamous Epith Cells 0-5 /hpf (0-5) 02/25/25 10:41 Amorphous Sediment Not Reportable 02/25/25 10:41 Urine Bacteria None seen /hpf (NONE) 02/25/25 10:41 Hyaline Casts 0-4 /lpf H 02/25/25 10:41 All radiology interpretation(s) finalized by discharge Discharge Plan Discharge Patient Disposition: Home Clinical Impression: Fall, Facial hematoma Condition: Stable Prescriptions: No Action aspirin [Adult Low Dose Aspirin] 81 mg tablet,delayed release (DR/EC) 81 mg PO QDAY (DME) blood-glucose meter [Contour Plus Blue Meter] [facility] See Rx Instructions .Route Qty: 1 3RF Rx Instructions: As directed, check BG once daily either fasting or 2 hours post meal. (DME) contour blue test strips See Rx Instructions .Route .MEDSUPPLY Qty: 100 3RF Rx Instructions: As directed, once daily BG monitoring. metformin 500 mg tablet 1,000 mg PO BID atorvastatin 80 mg tablet 80 mg PO BEDTIME amlodipine 10 mg tablet 10 mg PO DAILY omeprazole 20 mg capsule,delayed release(DR/EC) 20 mg PO QAM irbesartan 300 mg tablet 300 mg PO DAILY potassium chloride [Klor-Con M20] 20 mEq Tablet,Er Particles/Crystals 40 meq PO DAILY Qty: 30 0RF insulin lispro [Humalog KwikPen Insulin] 100 unit/mL insulin pen 3 unit SUBCUT TID Qty: 15 0RF dapagliflozin propanediol [Farxiga] 10 mg tablet 10 mg PO DAILY Qty: 30 3RF acetaminophen 325 mg Tablet 650 mg PO Q6H PRN (Reason: Mild Pain (Scale Score 1-4)) ondansetron HCl [Zofran] 4 mg Tablet 4 mg PO Q4H PRN (Reason: Nausea And Vomiting) polyethylene glycol 3350 [Miralax] 17 gram/dose Powder 17 g PO BID aripiprazole 5 mg tablet 5 mg PO DAILY isosorbide mononitrate 30 mg tablet extended release 24 hr 30 mg PO DAILY magnesium oxide 400 mg (241.3 mg magnesium) tablet 400 mg PO DAILY hydralazine 100 mg tablet 100 mg PO TID insulin glargine-yfgn 100 unit/mL (3 mL) insulin pen 30 unit SUBCUT BID Discharge Orders: Discharge ED (Routine); Ordered 02/25/25 Ordered By: Fransisco Rowe Referrals: Azam Mendoza DO [Primary Care Provider, Family Practice] Discharge Diet: Usual diet Discharge Activity: Increase activity as tolerated Patient Instructions: Opioid Safety, Pain Management, Patient Portal & Ron Instructions Activity Restrictions/Additional Instructions: [email or web address]. It is very important that you follow up as instructed or that you return to the Emergency Department should you have concerns or if your condition changes or worsens in any way. You were seen in the emergency room after a fall. He had a large hematoma above your right eye and the swelling from this will moved to the lower eyelid over the next few days and discolor the eye significantly. Testing of your vision showed it to be normal at the time you are seen the emergency room CT of your head and neck and x-rays of your right hand right knee were also negative for any acute fractures or other injuries. You likely be very sore for the next few days. Your tetanus was updated. You can use Tylenol and ibuprofen as needed for aches and pains you can also apply ice to the areas affected. Follow-up with your primary care doctor. Print Language: Guyanese Coding Level of Care Code ED Sterile Process Coordinator for Jay Jay Arteaga
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
[2025-02-25 10:33] LABS: Hematocrit 44.1 % (37-53); Hemoglobin 15.20 g/dL (11.27-16.99); Mean Corpuscular HGB Conc 34.5 g/dL (30-55); Mean Corpuscular Hemoglobin 29.8 pg (27-33); Mean Corpuscular Volume 86.5 fl (82-101); Nucleated Red Blood Cells % 0 %; Platelet Count 281 10^3/cmm (157-399); Red Blood Count 5.10 10^6/uL (3.85-5.65); White Blood Count 11.10 10^3/uL (3.29-11.43)
--- NOTE | 2025-02-25 10:46 | PC.PHAR ---
Pt is from [facility]. Semglee insulin replaces Lantus solostar.
[2025-02-25] MEDS: tetanus-dipt-pertussis 0.5 mL SDV IM (10:48)
[2025-02-25 10:51] LABS: Alanine Aminotransferase 17 U/L (0-41); Albumin Level 4.2 g/dL (3.5-5.2); Alkaline Phosphatase 71 U/L (40-130); Anion Gap 16.1 (5-19); Aspartate Amino Transferase 18 U/L (0-40); Blood Urea Nitrogen 10 mg/dL (8-23); Calcium 9.4 mg/dL (8.5-10.5); Carbon Dioxide 27 mmol/L (22-29); Chloride 102 mmol/L (98-107); Creatinine Clr Calc Pharmacy 114.1003; Globulin 3.1 g/dL (1.3-4.6); Glucose 207 mg/dL (65-115); Osmolality Calculated 297 mOsm/kg (285-295); Potassium 4.1 mmol/L (3.5-5.1); Sodium 141 mmol/L (136-145); Total Protein 7.3 g/dL (6.6-8.7)
[2025-02-25 11:06] LABS: Glucose Urine UA 3+ (Normal); Nitrate Urine Negative (Negative); Specific Gravity, Urine 1.014 (1.005-1.030)
[2025-02-25 11:08] LABS: Add Urine Microscopic? YES
[2025-02-25 11:44] VITALS: BP 143/79; PULSE 88; RESP 16; O2SAT 97
== END 2025-02-25 11:59 | disposition home or self-care (01) ==
PROVIDERS: Emergency Provider Family Medicine; PCP Family Medicine
DX: S00.93XA Contusion of unspecified part of head, initial encounter (principal); Z79.84 Long term (current) use of oral hypoglycemic drugs; Z79.4 Long term (current) use of insulin; I10 Essential (primary) hypertension; E78.5 Hyperlipidemia, unspecified; E11.40 Type 2 diabetes mellitus with diabetic neuropathy, unspecified; W19.XXXA Unspecified fall, initial encounter
CPT/HCPCS: 36415; 70450; 71045; 72125; 73130; 73562; 80053; 81001; 85025; 90471; 90715; 99284